=== PATIENT | male | born 1980 | race Caucasian/White ===

== ENCOUNTER 2020-06-01 18:41 | Emergency (ER) | payer OTHER, SELFPAY ==
[2020-06-01 18:46] VITALS: BP 151/87; PULSE 69; RESP 14; TEMP 35.9; O2SAT 99
--- NOTE | 2020-06-01 19:52 | ED.GENADULT ---
HPI - General Adult General Chief complaint: Extremity Problem,Nontraumatic Stated complaint: right arm swelling Time Seen by Provider: 06/01/20 18:50 Source: patient Mode of arrival: ambulatory Limitations: no limitations History of Present Illness HPI narrative: Patient presents with chief complaint of swelling to his right arm that started yesterday. Patient states that he has been off of Xarelto 20 mg a day for the past 3 days. Patient states that he has been taking aspirin as a substitute because of [facility] is unable to fill his medication until Sunday. Patient states that he has had multiple blood clots in his legs and his right arm. Patient states he is seen a sales appointment coordinator and they are unsure why he has blood clotting. Patient denies feeling short of breath, having chest pain or palpitation. Patient states that his was concerned that he was getting another blood clot in his arm so she made him come to the emergency department today. Related Data Home Medications Medication Instructions Recorded Confirmed atorvastatin 07/29/19 bupropion HCl mg PO 07/29/19 levothyroxine [Synthroid] 07/29/19 rivaroxaban [Xarelto] mg 07/29/19 trazodone 07/29/19 Allergies Allergy/AdvReac Type Severity Reaction Status Date / Time Penicillins Allergy Intermediate Hives / Verified 05/07/19 16:12 Red Face levofloxacin Allergy Unknown Hives Verified 06/01/20 18:52 Review of Systems Review of Systems: Narrative: CONSTITUTIONAL: Denies fever, chills, or sweats. EYES: Denies visual changes, redness, or discharge. ENT: Denies rhinorrhea, congestion, sore throat, or otalgia. CARDIOVASCULAR: Denies chest pain, palpitations, or edema. RESPIRATORY: Denies cough or dyspnea. GASTROINTESTINAL: Denies abdominal pain, nausea, vomiting, or diarrhea. GENITOURINARY: Denies dysuria or hematuria. SKIN: Right arm swelling denies rash or itching. MUSCULOSKELETAL: Denies back pain, joint pain, or myalgia. NEUROLOGIC: Denies headache, numbness, dizziness, or weakness. PSYCHIATRIC: Denies anxiety or depression. [facility] Past Medical History Medical History (Updated 06/01/20 @ 19:59 by Ariana Pichardo PA-C) History of DVT (deep vein thrombosis) History of hypothyroidism Social History Social History (Updated 07/29/19 @ 16:50 by Rabia Neal PA-C) Smoking status: Never smoker Exam Narrative: Exam Narrative: GENERAL: Well-appearing, well-nourished, and in no acute distress. HEAD: Normocephalic, atraumatic. EYES: PERRLA and EOMI. CHEST: Clear to auscultation. No respiratory distress. No wheezes rales or rhonchi. No tachypnea or shortness of breath noted. HEART: Regular rate and rhythm. No murmur heard. Normal peripheral pulses. EXTREMITIES: Normal range of motion. Mild swelling and erythema noted to proximal aspect of right arm. Cap refill and pulses intact. SKIN: Warm, dry, no rash. NEURO: No focal deficits. Alert and oriented x3. PSYCH: Normal mood and affect. Course Vital Signs Vital signs: Vital Signs Temperature 96.6 F L 06/01/20 18:46 Pulse Rate 69 06/01/20 18:46 Respiratory Rate 14 06/01/20 18:46 Blood Pressure 151/87 H 06/01/20 18:46 Pulse Oximetry 99 06/01/20 18:46 Temperature 96.6 F L 06/01/20 18:46 Pulse Rate 69 06/01/20 18:46 Respiratory Rate 14 06/01/20 18:46 Blood Pressure 151/87 H 06/01/20 18:46 Pulse Oximetry 99 06/01/20 18:46 Medical Decision Making MDM Narrative Medical decision making narrative: Discussed with the patient the ultrasound is not here presently. He is not tachycardic or short of breath. Patient will receive Lovenox injection and I will refill his Xarelto for the next few days. Patient states if he receives a prescription he can take it to [facility] to have it filled for short time. I have instructed him that he needs to return to the emergency department tomorrow morning at 7 AM for Doppler of his extremity. Vital Signs Vital Signs: Vi
[2020-06-01] MEDS: ENOXAPARIN 120 MG/0.8 ML SYRINGE 105 MG SUB-Q (20:40)
[2020-06-01 20:42] VITALS: BP 136/93; PULSE 86; RESP 20; O2SAT 97
== END 2020-06-01 20:43 | disposition home or self-care (01) ==
PROVIDERS: Emergency Provider Emergency Medicine
DX: M79.89 Other specified soft tissue disorders (principal); Z86.718 Personal history of other venous thrombosis and embolism; E03.9 Hypothyroidism, unspecified; Z79.01 Long term (current) use of anticoagulants
CPT/HCPCS: 96372; 99283; J1650

== ENCOUNTER 2021-09-30 15:37 | Emergency (ER) | payer OTHER, SELFPAY ==
[2021-09-30] VITALS (9 sets, daily range): BP systolic 128–133; BP diastolic 76–86; PULSE 60–88; RESP 12–22; TEMP 36.4; O2SAT 96–99
--- NOTE | ~2021-09-30 | CT_ITS ---
EXAMINATION: CTA chest PE protocol EXAM DATE: 09/30/2021 17:11 INDICATION: Chest pain. Shortness of breath. TECHNIQUE: Spiral CTA of the chest (pulmonary arteries) was performed with 100 cc Omnipaque 350 intr avenous contrast injection. Images were acquired during the pulmonary arterial phase. Coronal maxi mum intensity projection 3D-reconstructions were created by the technologist on dedicated workstation . Axial, coronal and sagittal reformatted images were reviewed. The dose-length product (DLP) for t his examination was 1462.66 mGy-cm. The exposure was tailored according to patient size (auto mA ex posure control), and iterative reconstruction (ASIR) was used as additional dose reduction technique. There is no prior study for comparison. FINDINGS: Pulmonary arteries are well opacified and without intraluminal filling defects. No thora cic aortic dissection. The lungs are clear. There are no pleural or pericardial effusions. Trach eobronchial tree is patent. There is no mediastinal, hilar or axillary lymphadenopathy. There is no pneumothorax. Heart normal in size. No evidence of coronary arterial calcification. Upper abd omen is unremarkable. There is thoracic spondylosis without osteoblastic or osteolytic lesions iden tified. Mild thyromegaly. No focal nodule identified. IMPRESSION: 1. No pulmonary emboli or acute cardiopulmonary findings. 2. Mild thyromegaly. Reviewed, dictated and finalized at location G.
--- NOTE | 2021-09-30 16:03 | PC.NURSE ---
pt had reported syncopal episode in waiting room. No LOC. web content director called for bed placement.
[2021-09-30 16:29] LABS: Basophils Percent Auto 0.6 % (0.2-1.2); Eosinophils Absolute Auto 0.2 K/mm3 (0-0.3); Eosinophils Percent Auto 2.6 % (0-4.4); Hemoglobin 16.8 g/dL (14.0-18.0); Immature Granulocyte Absolute 0.03 K/mm3 (0.00-0.031); Immature Granulocyte Percent A 0.4 % (0-0.5); Lymphocytes Absolute Auto 2.53 K/mm3 (0.9-3.2); Lymphocytes Percent Auto 34.9 % (18.3-44.2); Mean Corpuscular Hemoglobin 30.3 pg (26-34); Mean Corpuscular Volume 86.6 fl (80-100); Mean Platelet Volume 10.2 fl (7.4-10.4); Monocytes Absolute Auto 0.7 K/mm3 (0.1-0.6); Monocytes Percent Auto 9.4 % (2.6-8.5); Neutrophils Absolute Auto 3.8 K/mm3 (1.3-6.7); Neutrophils Percent Auto 52.1 % (45.5-73.1); Platelet Count Result 344 k/mm3 (150-375); Red Blood Count 5.54 M/mm3 (4.6-6.20); Red Cell Distribution Width 12.2 % (11.5-14.5); White Blood Count 7.2 K/mm3 (4.5-10.0)
[2021-09-30 16:39] LABS: Anion Gap 10 mmol/L (8-16); Blood Urea Nitrogen 20 mg/dL (9-20); Calcium 9.1 mg/dL (8.4-10.2); Carbon Dioxide 24 mmol/L (22-30); Chloride 104 mmol/L (98-107); Estimated CRCL calculation 96 ml/min; Estimated Glomerular Filt Rate > 60; Glucose 95 mg/dL (65-110); Potassium 4.1 mmol/L (3.4-5.0); Sodium 138 mmol/L (137-145)
[2021-09-30 16:42] LABS: Prothrombin Time 12.7 Seconds (11.1-14.7)
[2021-09-30 16:43] LABS: Partial Thromboplastin Time 25.1 SECONDS (22.3-36.8)
[2021-09-30] MEDS: MORPHINE SULFATE (*CRX) 4 MG/ML INJ IV PUSH (16:45)
[2021-09-30 16:51] LABS: Troponin I < 0.012 ng/mL (0.000-0.034)
--- NOTE | 2021-09-30 18:21 | ED.GENADULT ---
HPI - General Adult General Chief complaint: Shortness of Breath/Dyspnea <Michael Oglesby MD - Last Filed: 09/30/21 18:25> Stated complaint: sob <Michael Oglesby MD - Last Filed: 09/30/21 18:25> Time Seen by Provider: 09/30/21 16:08 <Michael Oglesby MD - Last Filed: 09/30/21 18:25> History of Present Illness HPI narrative: Patient is a 41-year-old male who presents to the ER with sudden onset right-sided chest pain. Lower right chest wall anteriorly. Sharp. Comes in waves. Worse with deep breath. Makes him mildly dyspneic but he is not out of breath and speaks in full sentences. No trauma. No fevers or chills or sweats. Has history of PE and takes Xarelto. He missed a dose this morning and last night because he has been working a midnight shift. Has chronic lymphedema in his right leg. No new leg swelling or calf cramping. No history of heart disease. Denies any productive cough. Symptoms began within 5 minutes of arrival at the ER. No history of gallstones. Pain is not associated with eating. No pain within the abdomen. <Michael Oglesby MD - Last Filed: 09/30/21 18:25> Related Data Home medications: Home Medications Medication Instructions Recorded Confirmed atorvastatin 07/29/19 06/23/21 bupropion HCl mg PO 07/29/19 06/23/21 levothyroxine [Synthroid] 07/29/19 06/23/21 rivaroxaban [Xarelto] mg 07/29/19 06/23/21 trazodone 07/29/19 06/23/21 <Michael Oglesby MD - Last Filed: 09/30/21 18:25> Allergies/adverse reactions: Allergies Allergy/AdvReac Type Severity Reaction Status Date / Time Penicillins Allergy Intermediate Hives / Verified 07/13/21 07:44 Red Face levofloxacin Allergy Unknown Hives Verified 07/13/21 07:44 <Michael Oglesby MD - Last Filed: 09/30/21 18:25> Review of Systems Review of Systems: All systems reviewed & are unremarkable except as noted in HPI and below <Michael Oglesby MD - Last Filed: 09/30/21 18:25> Constitutional: Constitutional: Denies chills, Denies fever(s) and Denies weakness <Michael Oglesby MD - Last Filed: 09/30/21 18:25> ENT: Denies nasal congestion and Denies sore throat <Michael Oglesby MD - Last Filed: 09/30/21 18:25> Cardiovascular: Cardiovascular: Reports chest pain, Denies rapid heart rate and Denies radiating jaw, neck or arm pain <Michael Oglesby MD - Last Filed: 09/30/21 18:25> Respiratory: Respiratory: Denies cough, Reports dyspnea and Denies wheezing <Michael Oglesby MD - Last Filed: 09/30/21 18:25> Gastrointestinal: Gastrointestinal: Denies abdominal pain, Denies constipation, Denies nausea and Denies vomiting <Michael Oglesby MD - Last Filed: 09/30/21 18:25> Musculoskeletal: Musculoskeletal: Denies arthralgias and Denies joint swelling <Michael Oglesby MD - Last Filed: 09/30/21 18:25> PMF Past Medical History Medical History: Medical History Chronic neck pain History of DVT (deep vein thrombosis) History of hypothyroidism HLD (hyperlipidemia) Hypothyroidism Insomnia PTSD (post-traumatic stress disorder) <Michael Oglesby MD - Last Filed: 09/30/21 18:25> Surgical History Surgical History: Surgical History H/O adenoidectomy S/P UPPP (uvulopalatopharyngoplasty) <Michael Oglesby MD - Last Filed: 09/30/21 18:25> Family History Family History: Family History (System 07/13/21 @ 07:44 by Lorena Liang) Grandparent Family history of thyroid disease Diabetes mellitus Cerebrovascular accident Family history of coronary artery disease Mother Family history of mental disorder Hypertension Family history of smoking <Michael Oglesby MD - Last Filed: 09/30/21 18:25> Social History Social History: Social History (System 07/13/21 @ 07:44 by Lorena Liang) Smoking status: Never smoker Alcohol intake: never
[2021-09-30] MEDS: KETOROLAC 30 MG/ML VIAL (*BKC) IV PUSH (18:35)
--- NOTE | 2021-09-30 19:15 | PC.NURSE ---
Report received from FLOYD Hackett. Pt resting on stretcher. Denies needs at present. Denies pain. 3 hr troponin collected and sent to lab.
[2021-09-30 19:57] LABS: Troponin I < 0.012 ng/mL (0.000-0.034)
== END 2021-09-30 21:04 | disposition home or self-care (01) ==
PROVIDERS: Emergency Medicine; Emergency Provider Emergency Medicine; PCP Family Medicine
DX: R07.89 Other chest pain (principal); R09.1 Pleurisy; E78.5 Hyperlipidemia, unspecified; E01.0 Iodine-deficiency related diffuse (endemic) goiter; F43.10 Post-traumatic stress disorder, unspecified; Z86.718 Personal history of other venous thrombosis and embolism
CPT/HCPCS: 36415; 71275; 80048; 84484; 85025; 85610; 85730; 96374; 96375; 99284; J1885; J2270; Q9967

== ENCOUNTER 2021-11-11 10:04 | Outpatient (CLI) | payer OTHER, SELFPAY ==
--- NOTE | 2021-11-11 13:48 | WPDPFTINT ---
PFT Procedure Performed PFT Procedure Performed Spirometry with Pre/Post Bronchodilator Plethysmography (Lung Vol) Diffusing Cap (DLCO) Flow Vol Loop PFT Interpretation This is a pulmonary function test with pre and post-bronchodilator spirometry, plethysmography and diffusing capacity. The test was performed and results interpreted in accordance with the 2019 and 2005 ATS/ERS Task Force guidelines respectively using the Global Lung Function Initiative-2012 reference equations. Patient demonstrated good effort and cooperation. Reproducibility criteria were met. The quality of the pre bronchodilator spirometry maneuver was Grade A and post bronchodilator spirometry maneuver was Grade A. Findings: Spirometry: The contour the inspiratory and expiratory flow tracing are normal. The pre bronchodilator FVC is 4.43 L, 88% predicted. The pre bronchodilator FEV1 is 3.56 L, 88% predicted. The pre bronchodilator FEV1: FVC ratio was 80%. The post bronchodilator FVC is 4.59 L, representing a 3% increase. The post bronchodilator FEV1 is 3.87 L, representing a 9% increase. The post bronchodilator FEV1: FVC ratio was 84%. Plethysmography: The total lung capacity 6.05 L, 90% predicted. Functional residual capacity is capacity is 2.19 L, 66% predicted. The residual volume is 1.56 L, 87% predicted. Diffusing capacity: The diffusing capacity unadjusted for hemoglobin and carboxyhemoglobin is 42.5, 131% predicted. The diffusing capacity adjusted for alveolar volume is 7.51, 154% predicted. Impression: The spirometry is normal without evidence of an obstructive abnormality. There is no significant improvement after inhaling a single dose of albuterol. The lung volumes are normal. The diffusing capacity is normal. There are no prior studies for comparison
== END 2021-11-11 10:05 | disposition home or self-care (01) ==
LOC: ANHPFT 10:06
PROVIDERS: PCP Family Medicine; Visit Provider Nurse Practitioner Family
DX: R06.00 Dyspnea, unspecified (principal)
CPT/HCPCS: 94060; 94726; 94729

== ENCOUNTER 2022-03-03 10:26 | Emergency (ER) | payer OTHER, SELFPAY ==
--- NOTE | ~2022-03-03 | CT_ITS ---
EXAMINATION: CT abdomen pelvis w con DATE: 03/03/2022 12:28 INDICATION: Left abdominal pain. TECHNIQUE: Computed tomography (CT) of the abdomen and pelvis was performed with 100 mL Omnipaque 350 intravenous contrast. Automated exposure control and iterative reconstruction technique were employe d. The dose-length product was 1161.24 mGy-cm. COMPARISON: Chest CT 09/30/2021 FINDINGS: The visualized portions of the lung bases demonstrate minimal atelectasis. No pleural effus ion. The heart size is normal. No pericardial effusion. There is diffuse hepatic steatosis. The gallb ladder, spleen, pancreas, adrenal glands, and kidneys are normal. There are changes of left inguinal hernia repair. There is fat stranding around an epiploic appendage of descending colon, consistent wi th epiploic appendagitis. There are no dilated loops of bowel. The appendix is normal. There are no p athologically enlarged lymph nodes. There is an umbilical hernia containing fat. There are no patholo gically enlarged lymph nodes. There is no free intraperitoneal fluid. There is mild thoracolumbar spo ndylosis. IMPRESSION: 1. Epiploic appendagitis involving descending colon. Reviewed, dictated and finalized at location A.
[2022-03-03 10:46] VITALS: BP 164/98; PULSE 74; RESP 20; TEMP 36.9; O2SAT 99
--- NOTE | 2022-03-03 11:35 | ED.ABDPAIN ---
HPI - Abdominal Pain General Chief Complaint: Abdominal Pain Stated Complaint: L side bad, recent hernia sx Time Seen by Provider: 03/03/22 11:22 History of Present Illness HPI narrative: Patient is a 41-year-old male who presents ER with left-sided abdominal pain. Worsening over the last couple of days. Patient recently had hernia repair laparoscopically at [place]. No fevers or chills or sweats. Having normal bowel movements. Reports he is belching on occasion. Pain is worse with movement and palpation and so he opted to come in. Related Data Home Medications Medication Instructions Recorded Confirmed atorvastatin 20 mg tablet 07/29/19 10/26/21 bupropion HCl 150 mg 24 hr tablet, mg PO 07/29/19 10/26/21 extended release rivaroxaban 20 mg tablet (Xarelto) mg 07/29/19 10/26/21 trazodone 50 mg tablet 07/29/19 10/26/21 levothyroxine 200 mcg capsule 200 mcg PO DAILY 10/26/21 10/26/21 Allergies Allergy/AdvReac Type Severity Reaction Status Date / Time Penicillins Allergy Intermediate Hives / Verified 03/03/22 11:26 Red Face levofloxacin Allergy Unknown Hives Verified 03/03/22 11:26 Review of Systems Review of Systems: All systems reviewed & are unremarkable except as noted in HPI and below Constitutional: Constitutional: Denies chills and Denies fever(s) Cardiovascular: Cardiovascular: Denies chest pain, Denies rapid heart rate and Denies radiating jaw, neck or arm pain Respiratory: Respiratory: Denies cough and Denies dyspnea Gastrointestinal: Gastrointestinal: Reports abdominal pain, Reports bloating, Denies nausea and Denies vomiting Genitourinary: Genitourinary: Denies dysuria and Denies urinary frequency [facility] Past Medical History Medical History Chronic neck pain History of DVT (deep vein thrombosis) History of hypothyroidism HLD (hyperlipidemia) Hypothyroidism Insomnia PTSD (post-traumatic stress disorder) Surgical History Surgical History H/O adenoidectomy S/P UPPP (uvulopalatopharyngoplasty) Family History Family History Grandparent Family history of thyroid disease Diabetes mellitus Cerebrovascular accident Family history of coronary artery disease Mother Family history of mental disorder Hypertension Family history of smoking Social History Social History Alcohol intake: never Exam Narrative: GENERAL: Well-appearing, well-nourished, and in no acute distress. HEAD: Normocephalic, atraumatic. EYES: PERRL and EOMI. CHEST: Clear to auscultation. No respiratory distress. HEART: Regular rate and rhythm. Normal peripheral pulses. ABDOMEN: Soft, tender to palpation left mid abdomen with guarding, nondistended, normal active bowel sounds. EXTREMITIES: Normal range of motion. No edema. SKIN: Warm, dry, no rash. NEURO: Alert and oriented x3. PSYCH: Normal mood and affect. Course Course Emergency Course: Patient informed of results. Discussed treatment plan. Discharge home. Vital Signs Vital signs: Vital Signs Temperature 98.5 F 03/03/22 10:46 Pulse Rate 74 03/03/22 10:46 Respiratory Rate 20 03/03/22 10:46 Blood Pressure 164/98 H 03/03/22 10:46 Pulse Oximetry 99 03/03/22 10:46 Oxygen Delivery Room Air 03/03/22 10:46 Temperature 98.5 F 03/03/22 10:46 Pulse Rate 74 03/03/22 10:46 Respiratory Rate 20 03/03/22 10:46 Blood Pressure 164/98 H 03/03/22 10:46 Pulse Oximetry 99 03/03/22 10:46 Oxygen Delivery Room Air 03/03/22 10:46 MDM - Abdominal Pain Lab Data Result diagrams: 03/03/22 11:37 03/03/22 11:37 Labs: Lab Results 03/03/22 03/03/22 Range/Units 11:37 11:37 WBC 7.8 (4.5-10.0) K/mm3 RBC 5.23 (4.6-6.20) M/mm3 Hgb 16.1 (14.0-18.0) g/dL Hct 47.
[2022-03-03 11:43] LABS: Basophils Absolute Auto 0.1 K/mm3 (0.0-0.1); Basophils Percent Auto 0.8 % (0.2-1.2); Eosinophils Absolute Auto 0.3 K/mm3 (0-0.3); Eosinophils Percent Auto 3.4 % (0-4.4); Hematocrit 47.1 % (42.0-52.0); Hemoglobin 16.1 g/dL (14.0-18.0); Immature Granulocyte Absolute 0.03 K/mm3 (0.00-0.031); Immature Granulocyte Percent A 0.4 % (0-0.5); Lymphocytes Absolute Auto 1.98 K/mm3 (0.9-3.2); Lymphocytes Percent Auto 25.3 % (18.3-44.2); Mean Corpuscular HGB Conc 34.2 g/dl (32-36); Mean Corpuscular Hemoglobin 30.8 pg (26-34); Mean Corpuscular Volume 90.1 fl (80-100); Mean Platelet Volume 9.9 fl (7.4-10.4); Monocytes Absolute Auto 0.6 K/mm3 (0.1-0.6); Monocytes Percent Auto 7.7 % (2.6-8.5); Neutrophils Absolute Auto 4.9 K/mm3 (1.3-6.7); Neutrophils Percent Auto 62.4 % (45.5-73.1); Platelet Count Result 266 k/mm3 (150-375); Red Blood Count 5.23 M/mm3 (4.6-6.20); Red Cell Distribution Width 12.8 % (11.5-14.5); White Blood Count 7.8 K/mm3 (4.5-10.0)
[2022-03-03 11:56] LABS: Alanine Aminotransferase 52 U/L (6-50); Albumin Level 4.7 g/dL (3.5-5.1); Alkaline Phosphatase 48 U/L (38-126); Anion Gap 8 mmol/L (8-16); Aspartate Amino Transferase 39 U/L (17-59); Bilirubin,Total 1.2 mg/dL (0.2-1.3); Blood Urea Nitrogen 17 mg/dL (9-20); Calcium 9.6 mg/dL (8.4-10.2); Carbon Dioxide 29 mmol/L (22-30); Chloride 100 mmol/L (98-107); Estimated CRCL calculation 94 ml/min; Estimated Glomerular Filt Rate > 60; Glucose 97 mg/dL (65-110); Lipase 97 U/L (23-300); Potassium 4.2 mmol/L (3.4-5.0); Sodium 137 mmol/L (137-145)
[2022-03-03 13:13] VITALS: BP 134/88; PULSE 70; RESP 16
== END 2022-03-03 13:15 | disposition home or self-care (01) ==
PROVIDERS: Emergency Provider Emergency Medicine; PCP Family Medicine
DX: K63.89 Other specified diseases of intestine (principal); E78.5 Hyperlipidemia, unspecified; E03.9 Hypothyroidism, unspecified; F43.10 Post-traumatic stress disorder, unspecified; Z86.718 Personal history of other venous thrombosis and embolism; Z79.01 Long term (current) use of anticoagulants
CPT/HCPCS: 36415; 74177; 80053; 83690; 85025; 99284; Q9967

== ENCOUNTER 2022-09-02 21:56 | Emergency (ER) | payer OTHER, SELFPAY ==
--- NOTE | ~2022-09-02 | XR_ITS ---
XR chest 2V DATE: 09/02/2022 23:34 INDICATION: Chest pain, shortness of breath TECHNIQUE: PA and lateral views COMPARISON: 09/30/2021 CT pulmonary scan 07/29/2021 view chest FINDINGS: Normal heart size. No hilar or mediastinal enlargement. No pulmonary infiltrate or consolid ation, pleural effusion or pulmonary vascular congestion or pneumothorax. Included skeletal structures are unremarkable. IMPRESSION: No active cardiopulmonary disease Reviewed, dictated and finalized at location A. 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
--- NOTE | ~2022-09-02 | CT_ITS ---
EXAMINATION: CT abdomen pelvis w con DATE: 09/02/2022 23:32 INDICATION: Diffuse abdominal cramping, left lower quadrant abdominal pain. Nausea, diarrhea. TECHNIQUE: Computed tomography (CT) of the abdomen and pelvis was performed with 100 CC Omnipaque 350 intravenous contrast. Automated exposure control and iterative reconstruction technique were employe d. Exam dose: 1496.53 mGy-cm total exam DLP. COMPARISON: 03/03/2022 CT abdomen pelvis FINDINGS: The lung bases are clear. Normal heart size. No pericardial or pleural effusion. Diffuse hepatic steatosis. No hepatic space-occupying mass lesion is detected. The gallbladder is pre sent and appears unremarkable. No bile duct or pancreatic duct dilatation. No pancreatic mass lesion or calcification. Normal splenic size. Normal morphology of the adrenal glands. No renal mass lesion or urinary tract calculus or hydrourete ronephrosis. Normal caliber of the abdominal aorta. No intraperitoneal or retroperitoneal or pelvic mass lesion or adenopathy or ascites. Small sliding hiatal hernia. Normal appendix. No bowel obstruction or intraperitoneal free air. IMPRESSION: Normal appendix. No bowel obstruction or free air Hepatic steatosis Reviewed, dictated and finalized at Location A. Reviewed, dictated and finalized at location A. 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
[2022-09-02 22:00] VITALS: BP 147/107; PULSE 100; RESP 18; TEMP 36.7; O2SAT 99
--- NOTE | 2022-09-02 22:04 | ECG_ITS ---
Measurements Intervals [place] Rate: 91 P: 39 WI: 165 QRS: 55 QRSD: 93 T: 34 QT: 337 QTc: 415 Interpretive Statements SINUS RHYTHM NORMAL ELECTROCARDIOGRAM NO PREVIOUS ECG AVAILABLE FOR COMPARISON Electronically Signed On 09-03-2022 8:05:38 HANDLE AND VENT MACHINE OPERATOR by Arnold Menard M.D.
[2022-09-02 22:21] LABS: Basophils Absolute Auto 0.1 K/mm3 (0.0-0.1); Basophils Percent Auto 0.6 % (0.2-1.2); Eosinophils Absolute Auto 0.2 K/mm3 (0-0.3); Eosinophils Percent Auto 2.2 % (0-4.4); Hematocrit 44.8 % (42.0-52.0); Hemoglobin 15.7 g/dL (14.0-18.0); Immature Granulocyte Absolute 0.03 K/mm3 (0.00-0.031); Immature Granulocyte Percent A 0.3 % (0-0.5); Lymphocytes Absolute Auto 1.47 K/mm3 (0.9-3.2); Lymphocytes Percent Auto 15.5 % (18.3-44.2); Mean Corpuscular Hemoglobin 31.3 pg (26-34); Mean Corpuscular Volume 89.2 fl (80-100); Mean Platelet Volume 10.3 fl (7.4-10.4); Monocytes Absolute Auto 0.9 K/mm3 (0.1-0.6); Monocytes Percent Auto 8.9 % (2.6-8.5); Neutrophils Absolute Auto 6.9 K/mm3 (1.3-6.7); Neutrophils Percent Auto 72.5 % (45.5-73.1); Platelet Count Result 247 k/mm3 (150-375); Red Blood Count 5.02 M/mm3 (4.6-6.20); Red Cell Distribution Width 12.6 % (11.5-14.5); White Blood Count 9.5 K/mm3 (4.5-10.0)
--- NOTE | 2022-09-02 22:23 | ED.SOB ---
HPI - SOB/Dyspnea General Chief Complaint: Shortness of Breath/Dyspnea Stated Complaint: SOB, CP Time Seen by Provider: 09/02/22 22:09 History of Present Illness HPI Narrative: Patient is a 42-year-old male here for evaluation of multiple medical complaints. He states that he has was hospitalized at [facility] for a few days last week after he was diagnosed with a PE. He has been placed on Coumadin and is compliant with this medicine. He was feeling improved but yesterday he developed epigastric abdominal pain, LLQ pain, chest pain and increased shortness of breath. Also complaining of R sided headache. No head trauma, loss of consciousness, nausea, vomiting, constipation or diarrhea, fevers or chills. He has not taken any medicine for his pain. 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 Related Data Home Medications Medication Instructions Recorded Confirmed atorvastatin 20 mg tablet 07/29/19 10/26/21 bupropion HCl 150 mg 24 hr tablet, mg PO 07/29/19 10/26/21 extended release rivaroxaban 20 mg tablet (Xarelto) mg 07/29/19 10/26/21 trazodone 50 mg tablet 07/29/19 10/26/21 levothyroxine 200 mcg capsule 200 mcg PO DAILY 10/26/21 10/26/21 Allergies Allergy/AdvReac Type Severity Reaction Status Date / Time Penicillins Allergy Intermediate Hives / Verified 09/02/22 22:03 Red Face levofloxacin Allergy Unknown Hives Verified 09/02/22 22:03 Review of Systems Review of Systems: Gen.: Denies fevers or chills Eyes: Denies eye pain or visual change ENT: Denies congestion Respiratory: Reports shortness of breath CV: Reports chest pain GI: Reports abdominal pain. denies burning, urgency, frequency or hematuria Musculoskeletal: Denies back pain or muscle pain Neuro: Reports headache. Denies numbness, tingling, weakness or focal weakness Skin: Denies rash Except as documented, all other systems reviewed and negative [facility] Past Medical History Medical History Chronic neck pain History of DVT (deep vein thrombosis) History of hypothyroidism HLD (hyperlipidemia) Hypothyroidism Insomnia PTSD (post-traumatic stress disorder) Surgical History Surgical History H/O adenoidectomy S/P UPPP (uvulopalatopharyngoplasty) Family History Family History Grandparent Family history of thyroid disease Diabetes mellitus Cerebrovascular accident Family history of coronary artery disease Mother Family history of mental disorder Hypertension Family history of smoking Social History Social History Alcohol intake: never Exam Narrative: APPEARANCE: Well appearing, no pain in distress, well-nourished. Head: Normocephalic and atraumatic. EYES: PERRLA/EOMI, conjunctivae clear NOSE: No nasal drainage EARS: External ear normal in appearance THROAT: Oropharynx is clear. Mucous membranes are moist. NECK: Supple. No adenopathy, no masses. RESPIRATORY: Airway patent, respirations nonlabored. Clear to auscultation bilaterally, no rales, rhonchi, wheezing. CARDIOVASCULAR: Regular rate and rhythm without murmurs, rubs, or gallops. ABDOMINAL: Lower quadrant abdominal tenderness. Normoactive bowel sounds. Soft, nondistended. No rebound tenderness or guarding. MUSCULOSKELETAL: Compression stocking in place to right lower extremity no calf tenderness bilaterally. Extremities are warm and well-perfused. Moves all extremities well. No edema. NEURO: Normal speech. No focal neurologic deficits. SKIN: Skin is warm and dry. No rashes. PSYCHIATRIC: Normal affect/mood. Course Vital Signs Vital signs: Vital Signs Temperature 98.1 F 09/02/22 22:00 Pulse Rate 100 09/02/22 22:00 Respiratory Rate 18 09/02/22 22:00 Blood Pressure 147/107 H 09/02/22
[2022-09-02 22:30] LABS: Alanine Aminotransferase 90 U/L (6-50); Albumin Level 4.8 g/dL (3.5-5.1); Alkaline Phosphatase 48 U/L (38-126); Anion Gap 5 mmol/L (8-16); Aspartate Amino Transferase 48 U/L (17-59); Bilirubin,Total 1.1 mg/dL (0.2-1.3); Blood Urea Nitrogen 14 mg/dL (9-20); Calcium 9.2 mg/dL (8.4-10.2); Carbon Dioxide 30 mmol/L (22-30); Chloride 101 mmol/L (98-107); Estimated CRCL calculation 96 ml/min; Estimated Glomerular Filt Rate > 60; Glucose 88 mg/dL (65-110); Lipase 184 U/L (23-300); Potassium 4.3 mmol/L (3.4-5.0); Sodium 136 mmol/L (137-145)
[2022-09-02 22:31] LABS: INR 2.2; Prothrombin Time 23.5 Seconds (11.1-14.7)
[2022-09-02 22:32] LABS: Partial Thromboplastin Time 35.7 SECONDS (22.3-36.8)
[2022-09-02 22:40] VITALS: PULSE 93
[2022-09-02 22:42] LABS: Troponin I < 0.012 ng/mL (0.000-0.034)
[2022-09-02 23:08] VITALS: BP 131/90; PULSE 91; RESP 19; O2SAT 94
[2022-09-02 23:15] LABS: Influenza A QL RT-PCR Negative (Negative); Influenza B QL RT-PCR Negative (Negative); SARS-CoV-2 RNA PCR Negative
[2022-09-02 23:25] VITALS: O2SAT 98
--- NOTE | 2022-09-02 23:30 | PC.NURSE ---
Pt to imaging at this time.
[2022-09-03] MEDS: DICYCLOMINE HCL 10 MG CAPSULE 20 MG PO (00:25)
[2022-09-03 00:28] VITALS: BP 123/79; PULSE 77; RESP 18; TEMP 36.6; O2SAT 98
== END 2022-09-03 00:29 | disposition home or self-care (01) ==
PROVIDERS: Emergency Medicine; Emergency Provider Physician Assistant
DX: K52.9 Noninfective gastroenteritis and colitis, unspecified (principal); Z20.822 Contact with and (suspected) exposure to COVID-19; E03.9 Hypothyroidism, unspecified; E78.5 Hyperlipidemia, unspecified; F43.10 Post-traumatic stress disorder, unspecified; Z86.718 Personal history of other venous thrombosis and embolism; Z79.01 Long term (current) use of anticoagulants
CPT/HCPCS: 36415; 71046; 74177; 80053; 83690; 84484; 85025; 85610; 85730; 87636; 93005; 96374; 99284; A9270; J0131; Q9967

== ENCOUNTER 2022-12-25 12:41 | Emergency (ER) | payer OTHER, SELFPAY ==
--- NOTE | ~2022-12-25 | CT_ITS ---
EXAMINATION: CT pelvis w con DATE: 12/25/2022 14:13 INDICATION: Possible abscess of the perineum TECHNIQUE: Computed tomography (CT) of the pelvis was performed with 100 cc Omnipaque 350 intravenous contrast. The dose-length product was 1015.57 mGy-cm. COMPARISON: None FINDINGS: There is a small abscess of the perineum anterior to the gluteal folds measuring 2 x 1.7 x 1.3 cm, axial images 114-118. Nonobstructive bowel pattern. Visualized aspects of the kidneys are unr emarkable. No significant vascular abnormality. There is mild left inguinal lymphadenopathy, likely r eactive. No free air or free fluid. IMPRESSION: 1. Small abscess of the perineum measuring 2 x 1.7 x 1.3 cm, best seen on axial images 114-118. Reviewed, dictated and finalized at location []
[2022-12-25 12:44] VITALS: BP 138/100; PULSE 94; RESP 16; TEMP 37; O2SAT 98
--- NOTE | 2022-12-25 13:25 | ED.GENADULT ---
HPI - General Adult General Chief complaint: Skin/Abscess/Foreign Body Stated complaint: abcess behind scrotum Time Seen by Provider: 12/25/22 12:56 History of Present Illness HPI narrative: 42-year-old male presented the ED for evaluation of pain behind his scrotum that has been worsening over the course of the last week. Patient reports he is not but diabetic, denies any fevers or injury, denies any high risk sexual behavior. Denies any pain with urination. Patient has no prior history of MRSA. Related Data Home Medications Medication Instructions Recorded Confirmed atorvastatin 20 mg tablet 07/29/19 10/26/21 bupropion HCl 150 mg 24 hr tablet, mg PO 07/29/19 10/26/21 extended release rivaroxaban 20 mg tablet (Xarelto) mg 07/29/19 10/26/21 trazodone 50 mg tablet 07/29/19 10/26/21 levothyroxine 200 mcg capsule 200 mcg PO DAILY 10/26/21 10/26/21 Allergies Allergy/AdvReac Type Severity Reaction Status Date / Time Penicillins Allergy Intermediate Hives / Verified 12/25/22 12:47 Red Face levofloxacin Allergy Unknown Hives Verified 12/25/22 12:47 Review of Systems Review of Systems: All systems reviewed & are unremarkable except as noted in HPI and below PMFSH Past Medical History Medical History Chronic neck pain History of DVT (deep vein thrombosis) History of hypothyroidism HLD (hyperlipidemia) Hypothyroidism Insomnia PTSD (post-traumatic stress disorder) Surgical History Surgical History H/O adenoidectomy S/P UPPP (uvulopalatopharyngoplasty) Family History Family History Grandparent Family history of thyroid disease Diabetes mellitus Cerebrovascular accident Family history of coronary artery disease Mother Family history of mental disorder Hypertension Family history of smoking Social History Social History Alcohol intake: never Exam Narrative: APPEARANCE: Well appearing, no pain, no distress, well-nourished. HEAD: normocephalic, atraumatic. EYES: PERRLA/EOMI, conjunctivae clear. NOSE: Normal no drainage NECK: Supple. No adenopathy, no masses. RESPIRATORY: Airway patent, respirations nonlabored. Clear to auscultation bilaterally, no rales, rhonchi, wheezing. CARDIOVASCULAR: Regular rate and rhythm without murmurs rubs or gallops. ABDOMINAL: Soft, nontender, nondistended, normal bowel sounds Scrotal exam: Tenderness of the perineum with no fluctuance or significant erythema. No tenderness anteriorly during the rectal exam. No palpated abscess on rectal exam. MUSCULOSKELETAL: Moves all extremities. Strength/ROM intact, No edema, No calf tenderness. NEURO: Alert. Cranial nerves II through XII intact. Grossly intact SKIN: Warm, dry. Normal Color Course Course Emergency Course: 42-year-old male presented the ED for evaluation of pain of the perineum. CT scan did show evidence of an abscess of the perineum. Patient was afebrile with no leukocytosis. Bedside ultrasound did show the abscess was amenable to drainage. Patient was anesthetized with lidocaine with epi and abscess was successfully drained and packed. Patient was started on antibiotics. Patient was encouraged of close follow-up. All question concerns were addressed and patient was stable at time of discharge Vital Signs Vital signs: Vital Signs Temperature 98.6 F 12/25/22 12:44 Pulse Rate 94 12/25/22 12:44 Respiratory Rate 16 12/25/22 12:44 Blood Pressure 138/100 H 12/25/22 12:44 Pulse Oximetry 98 12/25/22 12:44 Temperature 98.6 F 12/25/22 12:44 Pulse Rate 90 12/25/22 15:30 Respiratory Rate 16 12/25/22 15:30 Blood Pressure 160/89 H 12/25/22 15:30 Pulse Oximetry 100 12/25/22 15:30 Procedures Abscess I/D abdomen: Local Anesthet
[2022-12-25 13:33] LABS: Basophils Percent Auto 0.4 % (0.2-1.2); Eosinophils Absolute Auto 0.3 K/mm3 (0-0.3); Eosinophils Percent Auto 2.5 % (0-4.4); Hematocrit 44.5 % (42.0-52.0); Hemoglobin 15.2 g/dL (14.0-18.0); Immature Granulocyte Absolute 0.03 K/mm3 (0.00-0.031); Immature Granulocyte Percent A 0.3 % (0-0.5); Lymphocytes Absolute Auto 1.99 K/mm3 (0.9-3.2); Lymphocytes Percent Auto 20.1 % (18.3-44.2); Mean Corpuscular HGB Conc 34.2 g/dl (32-36); Mean Corpuscular Volume 87.8 fl (80-100); Mean Platelet Volume 10.1 fl (7.4-10.4); Monocytes Absolute Auto 0.9 K/mm3 (0.1-0.6); Monocytes Percent Auto 9.4 % (2.6-8.5); Neutrophils Absolute Auto 6.7 K/mm3 (1.3-6.7); Neutrophils Percent Auto 67.3 % (45.5-73.1); Platelet Count Result 254 k/mm3 (150-375); Red Blood Count 5.07 M/mm3 (4.6-6.20); Red Cell Distribution Width 12.3 % (11.5-14.5); White Blood Count 9.9 K/mm3 (4.5-10.0)
[2022-12-25 13:39] LABS: Appearance Urine Clear (Clear); Bilirubin Urine Negative (Negative); Blood Urine Negative (Negative); Color Urine Yellow (Yellow); Glucose Urine UA Negative (Negative); Ketones Urine Negative (Negative); Leukocyte Esterase Ur Negative LEU/UL (Negative); Nitrate Urine Negative (Negative); Protein Urine Negative (Negative); Specific Grav Ur 1.024 (1.001-1.035); pH Urine 5.5 (5.0-9.0)
[2022-12-25 13:41] LABS: Add Urine Microscopic? NO
[2022-12-25 13:45] LABS: Lactic Acid Reflex 0.8 mmol/L (0.7-2.0)
[2022-12-25 13:46] LABS: Alanine Aminotransferase 40 U/L (6-50); Albumin Level 4.1 g/dL (3.5-5.1); Alkaline Phosphatase 38 U/L (38-126); Anion Gap 5 mmol/L (8-16); Aspartate Amino Transferase 37 U/L (17-59); Bilirubin,Total 1.1 mg/dL (0.2-1.3); Blood Urea Nitrogen 18 mg/dL (9-20); Calcium 8.7 mg/dL (8.4-10.2); Carbon Dioxide 30 mmol/L (22-30); Chloride 102 mmol/L (98-107); Estimated CRCL calculation 96 ml/min; Estimated Glomerular Filt Rate > 60; Glucose 93 mg/dL (65-110); Potassium 4.1 mmol/L (3.4-5.0); Sodium 137 mmol/L (137-145)
[2022-12-25 14:12] LABS: Estimated CRCL calculation 82 ml/min; Estimated Glomerular Filt Rate > 60
[2022-12-25] MEDS: HYDROmorphone HCL INJ (*CRX) 1 MG/ML SYR IV PUSH (14:38)
--- NOTE | 2022-12-25 15:00 | PC.NURSE ---
Dr. Sam at bedside to I&D perineum abscess. pt tolerating well
[2022-12-25] MEDS: CLINDAMYCIN HCL 150 MG CAP 300 MG PO (15:20)
[2022-12-25] MEDS: LIDO 1%/EPINEPHRINE 1:100,000 20 ML VIAL 10 ML INFILTRATE (15:21)
[2022-12-25 15:30] VITALS: BP 160/89; PULSE 90; RESP 16; O2SAT 100
== END 2022-12-25 15:30 | disposition home or self-care (01) ==
PROVIDERS: Emergency Provider Emergency Medicine
DX: L02.215 Cutaneous abscess of perineum (principal); E03.9 Hypothyroidism, unspecified; E78.5 Hyperlipidemia, unspecified; F43.10 Post-traumatic stress disorder, unspecified; Z86.718 Personal history of other venous thrombosis and embolism; Z79.01 Long term (current) use of anticoagulants
CPT/HCPCS: 10061; 36415; 46040; 72193; 80053; 81003; 83605; 85025; 96374; 99283; 99284; A9270; J1170; Q9967

== ENCOUNTER 2023-10-25 20:57 | Emergency (ER) | payer OTHER, SELFPAY ==
--- NOTE | ~2023-10-25 | XR_ITS ---
EXAMINATION: XR ankle LT 2V DATE: 10/25/2023 22:18 INDICATION: Left ankle injury. TECHNIQUE: 2 views of left ankle were obtained. COMPARISON: None. FINDINGS: Bone alignment is normal. No fracture. There is heterotopic ossification distal to lateral malleolus. Joint spaces are normal. There are enthesophytes at the posterior and plantar aspects of c alcaneal tuberosity. Ankle soft tissue swelling is noted. IMPRESSION: 1. No acute fracture. Reviewed, dictated and finalized at location E. IMPRESSION: 1. No acute fracture.
[2023-10-25 21:05] VITALS: BP 149/88; PULSE 83; RESP 18; TEMP 36.3; O2SAT 100
--- NOTE | 2023-10-25 22:21 | PC.NURSE ---
pt to ed staff stating, no one is taking this seriously, I have a history of pulmonary embolism, I am on blood thinners, you need to figure out what is going on . this rn educated patient on the process of intake and triage. pt verbalized If I do not get back to a room quickly, I will have to leave and go somewhere else . this rn explained to patient the benefits of seeing provider. pt returned to being seated.
--- NOTE | 2023-10-25 22:33 | ED.LOWEXIN ---
HPI - Extremity Injury (Lower) General Chief Complaint: Extremity Injury, Lower Stated Complaint: L ankle injury Time Seen by Provider: 10/25/23 22:30 History of Present Illness HPI Narrative: patient got hit by a baseball to the front of the distal left leg anteriorly 2 hours ago. Patient complaining of pain. History of deep vein thrombosis on Coumadin. He denies other injuries. Patient drove himself to the emergency room. Related Data Home Medications Medication Instructions Recorded Confirmed atorvastatin 20 mg tablet 07/29/19 12/27/22 bupropion HCl 150 mg 24 hr tablet, mg PO 07/29/19 12/27/22 extended release trazodone 50 mg tablet 07/29/19 12/27/22 levothyroxine 200 mcg capsule 200 mcg PO DAILY 10/26/21 12/27/22 warfarin 1 mg tablet 1 mg PO DAILY 12/27/22 12/27/22 Allergies Allergy/AdvReac Type Severity Reaction Status Date / Time Penicillins Allergy Intermediate Hives / Verified 10/25/23 20:58 Red Face levofloxacin Allergy Unknown Hives Verified 10/25/23 20:58 Review of Systems Review of Systems: All systems reviewed & are unremarkable except as noted in HPI and below PMFSH Past Medical History Medical History Chronic neck pain History of DVT (deep vein thrombosis) History of hypothyroidism HLD (hyperlipidemia) Hypothyroidism Insomnia PTSD (post-traumatic stress disorder) Surgical History Surgical History H/O adenoidectomy H/O hemorrhoidectomy H/O inguinal hernia repair H/O wrist surgery History of surgery on lower extremity History of surgery on upper extremity right bicep repair right rotator cuff repair S/P UPPP (uvulopalatopharyngoplasty) Family History Family History Grandparent Family history of thyroid disease Diabetes mellitus Cerebrovascular accident Family history of coronary artery disease Mother Family history of mental disorder Hypertension Family history of smoking Social History Social History Smoking status: Never smoker Alcohol intake: never Living arrangements: with family Exam Narrative: General appearance: Well-developed, well-nourished Skin: Normal color Head: Normocephalic, nontraumatic Eyes: Clear conjunctiva ENT: Oropharynx normal, ears normal, nose normal Neck: Supple, nontender Chest and respiratory: Airway patent, no respiratory distress, no accessory muscle use Heart: Regular rate/rhythm Abdomen: Soft, nontender, no organomegaly, quiet bowel sounds Vascular: Normal peripheral pulses, normal capillary refill. Musculoskeletal: Left lower leg showed 3 cm bruises distally, anteriorly just above the level of the ankle. No limited range of motion, no swelling, no deformity Neurologic: Alert and oriented ?3, DIRECT[employer] is normal as tested, no gross motor deficit Course Vital Signs Vital signs: Vital Signs Temperature 36.3 C L 10/25/23 21:05 Pulse Rate 83 10/25/23 21:05 Respiratory Rate 18 10/25/23 21:05 Blood Pressure 149/88 H 10/25/23 21:05 Pulse Oximetry 100 10/25/23 21:05 Oxygen Delivery Room Air 10/25/23 21:05 Temperature 36.3 C L 10/25/23 21:05 Pulse Rate 83 10/25/23 21:05 Respiratory Rate 18 10/25/23 21:05 Blood Pressure 149/88 H 10/25/23 21:05 Pulse Oximetry 100 10/25/23 21:05 Oxygen Delivery Room Air 10/25/23 21:05 MDM - Extremity Injury (Lower) MDM Narrative Medical decision making narrative: Impressions Ankle X-Ray 10/25/23 22:22 IMPRESSION: 1. No acute fracture. D
[2023-10-25] MEDS: HYDROcodone/acetaminophen (*CRX) 5-325 MG TABLET 1 TAB PO (23:10)
== END 2023-10-25 23:12 | disposition home or self-care (01) ==
LOC: ANHED 22:44
PROVIDERS: Emergency Provider Emergency Medicine
DX: S80.12XA Contusion of left lower leg, initial encounter (principal); E03.9 Hypothyroidism, unspecified; E78.5 Hyperlipidemia, unspecified; F43.10 Post-traumatic stress disorder, unspecified; Z86.718 Personal history of other venous thrombosis and embolism; Z79.01 Long term (current) use of anticoagulants; W21.03XA Struck by baseball, initial encounter
CPT/HCPCS: 73600; 99283; A9270

== ENCOUNTER 2025-05-09 18:36 | Emergency (ER) | payer OTHER, SELFPAY ==
--- NOTE | ~2025-05-09 | XR_ITS ---
EXAMINATION: XR knee LT 3V, 05/09/2025 19:52 CDT HISTORY: knee pain COMPARISON: No comparisons available. Findings: No acute fracture or malalignment. No significant degenerative changes. Soft tissues unremarkable. Impression: No acute fracture or malalignment. Reviewed, dictated and finalized at location P. Impression: No acute fracture or malalignment.
[2025-05-09 18:43] VITALS: BP 155/99; PULSE 88; RESP 19; TEMP 36.9; O2SAT 97
--- NOTE | 2025-05-09 20:23 | ED_ITS ---
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 Patient presents to the emergency department today with left knee pain after feeling a pop while he was going down the knee along it. [place] a pop in his left knee and then had a burning sensation to his left outer aspect of the knee near the patella. Did not feel the patella move her shift. No traumatic injuries and he was just kneeling down. No falls. Is able to range the extremity without difficulty but does have reproducible pain over the left lateral aspect of the knee when he bends past 90?. Able to bear weight but has worsening pain when he dorsiflexes the ankle. No overlying skin discoloration or changes. No sensation loss or weakness. Was otherwise in his normal state of health. No changes to his medications recently. Related Data Home Medications ?Medication ?Instructions ?Recorded ?Confirmed ?Last Taken ?Type atorvastatin 20 mg tablet 07/29/19 12/27/22 Unknown H istory bupropion HCl 150 mg 24 hr tablet, mg PO 07/29/1912/08 Unknown History extended release trazodone 50 mg tablet 07/29/19 12/27/22 Unknown H istory levothyroxine 200 mcg capsule 200 mcg PO DAILY 2 12/27/22 Unknown History warfarin 1 mg tablet 1 mg PO DAILY 12/27/2212/27 Unknown History Allergies Allergy/AdvReac Type Severity Reaction Status Date / Time Penicillins Allergy Intermediate Hives / Verified 05/09/25 19:32 Red Face levofloxacin Allergy Unknown Hives Verified 05/09/25 19:32 Review of Systems Review of Systems: As reviewed above in HPI [facility] Past Medical History Medical History PTSD (post-traumatic stress disorder) Chronic neck pain Hypothyroidism Insomnia HLD (hyperlipidemia) History of DVT (deep vein thrombosis) History of hypothyroidism Surgical History Surgical History H/O inguinal hernia repair H/O wrist surgery H/O hemorrhoidectomy History of surgery on upper extremity right bicep repair right rotator cuff repair History of surgery on lower extremity H/O adenoidectomy S/P UPPP (uvulopalatopharyngoplasty) Family History Family History Grandparent Family history of thyroid disease Diabetes mellitus Cerebrovascular accident Family history of coronary artery disease Mother Family history of mental disorder Hypertension Family history of smoking Social History Social History Smoking status: Never smoker Alcohol intake: never Living arrangements: with family Exam Narrative: GENERAL: [Well-appearing, well-nourished, and in no acute distress.] HEAD: [Normocephalic, atraumatic.] EYES: [PERRLA and EOMI.] ENT: Nares clear, no rhinorrhea or epistaxis. Mucous membranes moist. NECK: Supple. CHEST: [Clear to auscultation. No respiratory distress.] HEART: [Regular rate and rhythm]. No murmur heard. [Normal peripheral pulses.] ABDOMEN: [Soft, nondistended], [nontender], [No rigidity or guarding] EXTREMITIES: No extremity edema. Normal range of motion but does have elicit pain over the left lateral joint line of the knee with flexion past 90?. Plantar flexion and dorsiflexion 5/5. Dorsiflexion elicits some pain in the same area. Describes the pain as burning but no overlying skin discoloration or redness/hematoma formation. No popliteal masses or calf asymmetry or palpable cords. 2+ dorsalis pedis pulse and warm extremity. No medial joint line tenderness or laxity with valgus or varus stress testing. Negative Chavez's testing but positive Clarence grind test. SKIN: Warm, dry, no rash. NEURO: [No focal deficits]. Alert and oriented [x3.] PSYCH: [Normal mood and affect.] Course Vital Signs Vital signs: Vital Signs Temperature 36.9 C 05/09/25 18:43 Pulse Rate 88 05/09/25 18:43 Respiratory Rate 19 05/09/25 18:43 Blood Pressure 155/99 H 05/09/25 18:43 Pulse Oximetry 97 05/09/25 18:43 Oxygen Delivery Room Air 05/09/25 18:43 Temperature 36.9 C 05/09/25 18:43 Pulse Rate 88 05/09/25 18:43 Respiratory Rate 19 05/09/25 18:43 Blood Pressure 155/99 H 05/09/25 18:43 Pulse Oximetry 97 05/09/25 18:43 Oxygen Delivery Room Air 05/09/25 18:43 MDM - Extremity Injury (Lower) MDM Narrative Medical decision making narrative: 44-year-old male with 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 Patient presents to the emergency department today with left knee pain after feeling a pop while he was going down the knee along it. [place] a pop in his left knee and then had a burning sensation to his left outer aspect of the knee near the patella. Did not feel the patella move her shift. No traumatic injuries and he was just kneeling down. No falls. Is able to range the extremity without difficulty but does have reproducible pain over the left lateral aspect of the knee when he bends past 90?. Able to bear weight but has worsening pain when he dorsiflexes the ankle. No overlying skin discoloration or changes. No sensation loss or weakness. Was otherwise in his normal state of health. No changes to his medications recently. No extremity edema. Normal range of motion but does have elicit pain over the left lateral joint line of the knee with flexion past 90?. Plantar flexion and dorsiflexion 5/5. Dorsiflexion elicits some pain in the same area. Describes the pain as burning but no overlying skin discoloration or redness/hematoma formation. No popliteal masses or calf asymmetry or palpable cords. 2+ dorsalis pedis pulse and warm extremity. No medial joint line tenderness or laxity with valgus or varus stress testing. Negative Chavez's testing but positive Clarence grind test. Patient is hemodynamically stable with unremarkable vital signs. Suspect meniscal injury verses ligamentous injury in the lateral collateral ligament based on the description and findings. Less likely patellar dislocation or occult fracture. No traumatic inciting event. X-rays were obtained and negative for acute traumatic injury or malalignment. Patient placed in knee immobilizer given tramadol for comfort. Lidocaine patch applied and he was given referral for orthopedics for further outpatient testing if warranted and not improving with conservative therapy. Patient was told that he had previously injured menisci from repaired of wear and tear while he was in the [employer]. No history of surgeries or interventions to his knees. Medical Records Attestation: I reviewed the patient's medical records. Imaging Data Attestation: I personally reviewed and interpreted this imaging study as follows: My impression: Impressions Knee X-Ray 05/09/25 19:59 Impression: No acute fracture or malalignment. Discharge Plan Discharge Clinical Impression: Acute knee pain Patient Disposition: Hospice - Home Condition: Stable Instructions: Knee Sprain (ED), Knee Pain (ED), Knee Immobilizer (ED) Additional Instructions: X-rays do not show any broken bones or fractures/malalignment. Suspect potential meniscus verses lateral collateral ligament injury. Wear the knee immobilizer for comfort. We have sent you some pain control medications including tramadol but in addition I would recommend taking ibuprofen every 8 hours in addition to a lidocaine patch to the area that is hurting you. Do not have to wear the immobilizer 29/01 but use it for comfort and ambulation, you can also substitute with a more comfortable knee brace if you have one. Call the provided configuration specialist for a outpatient evaluation next week. Apply ice to the area up to 20 minutes at a time. After 2 days you can start adding in heat to the area. Patient Language: Vietnamese Prescriptions: New tramadol 50 mg tablet 50 mg PO Q6H PRN (Reason: pain) Qty: 14 0RF acetaminophen [Tylenol Extra Strength] 500 mg tablet 1,000 mg PO TID PRN (Reason: pain) Qty: 30 0RF lidocaine 5 % adhesive patch,medicated 1 patch topical DAILY Qty: 15 0RF Rx Instructions: leave on most painful area for up to 12 hrs No Action warfarin 1 mg tablet 1 mg PO DAILY levothyroxine 200 mcg capsule 200 mcg PO DAILY atorvastatin 20 mg tablet trazodone 50 mg tablet bupropion HCl 150 mg tablet extended release 24 hr PO clindamycin HCl 300 mg capsule 300 mg PO Q6H 10 Days Qty: 40 0RF Follow-up/Referrals: Fadi Lainez MD [Physician, Orthopedics] - 2 Days Referral Note: call Sunday for follow up appointment. Vince Olivares DO [Primary Care Provider, Internal Medicine] Time of Disposition: 20:31
--- OUTSIDE RECORDS SUMMARY | 2025-05-09 20:26 | XMS_ITS | Encounter Summary ---
Author Organization [facility] Address [address] [place] [id number] Care Team Providers Care Inlayer Silver Name Role Phone Gagan NASSAR MD, Zhen Bird Primary Care Provider Encounter Details Date Type Department Care Team (Late st Contact Info) Description 12/24/2022 [email or web address] Message Enc [facility] Family Medicine - [place] [phone] Zhen Farah II, MD [address] [place] [address] Large cyst Social History Tobacco Use Types Packs/Day Years Used Date Smoking Tobacco: Never Smokeless Tobacco: Never Alcohol Use Standard Drinks/Week Comments Yes 0 (1 standard drink = 0.6 oz pur e alcohol) rare Humiliation, Afraid, Rape, and Kick questionnair e Answer Date Recorded Within the last year, have y ou been afraid of your partner or ex-partner? No 08/22/2022 Within the last year, have y ou been humiliated or emotionally abused in other ways by your partner or ex-partner? No Within the last year, have y ou been kicked, hit, slapped, or otherwise physically hurt by your partner or ex-partner? No 08/22/2022 Within the last year, have y ou been raped or forced to have any kind of sexual activity by your partner or ex-partner? No 08/22/2022 Overall Financial Resource Strain (CARDIA) Answe r Date Recorded How hard is it for you to pa y for the very basics like food, housing, medical care, and heating? Not hard at all 08/22/2022 PHQ-2 Answer Date Recorded Patient Health Questionnaire-2 Score 0 08/03/2022 Hunger Vital Sign Answer Date Recorded Within the past 12 months, y ou worried that your food would run out before you got the money to buy more. Never true 08/22/19 23 Within the past 12 months, t he food you bought just didn't last and you didn't have money to get more. Never true 08/22/2022 PRAPARE - Transportation Answer Date Re corded In the past 12 months, has l ack of transportation kept you from medical appointments or from getting medications? No 08/09 In the past 12 months, has l ack of transportation kept you from meetings, work, or from getting things needed for daily living? No 08/22/2022 Housing Stability Vital Sign Answer Sanjay e Recorded In the last 12 months, was t here a time when you were not able to pay the mortgage or rent on time? No 08/22/2022 In the last 12 months, how many places have you lived? 1 08/22/2022 In the last 12 months, was t here a time when you did not have a steady place to sleep or slept in a custodial (including now)? No 08/22/2022 Sex and Gender Information Value Date Recorded Sex Assigned at Male 08/21/2024 8:36 AM EMERGENCY ROOM RN Legal Sex Male 9:10 AM CDT Gender Identity Male 08/25/2024 7:05 AM EMERGENCY ROOM RN Sexual Orientation Not on file COVID-19 Exposure Response Date Recorded In the last 10 days, have yo u been in contact with someone who was confirmed or suspected to have Coronavirus/COVID-19? No / Unsure 11/24/2022 10:41 AM CDT documented as of this encounter Functional Status * RETIRED Are you deaf or do you have serious difficulty hearing Answer Date of Assessment Author Status No 08/22/2022 4:56 PM EMERGENCY ROOM RN Activ e * RETIRED Are you blind or do you have serious difficulty seeing, even when wearing glasses? Answer Date of Assessment Author Status No 08/22/2022 4:56 PM EMERGENCY ROOM RN Activ e * Do you have serious difficulty walking or climbing stairs? Answer Date of Assessment Author Status No 08/22/2022 4:56 PM EMERGENCY ROOM RN Mona Harris R N Active * Do you have difficulty dressing or bathing? Answer Date of Assessment Author Status No 08/22/2022 4:56 PM EMERGENCY ROOM RN Mona Harris R N Active * Because of a physical, mental, or emotional condition, do you have difficulty doing errands alone such as visiting a doctor's office or shopping? Answer Date of Assessment Author Status No 08/22/2022 4:56 PM EMERGENCY ROOM RN Mona Harris R N Active documented as of this encounter Mental Status * Because of a physical, mental, or emotional condition, do you have serious difficulty concentrating, remembering, or making decisions? Answer Entry Date Author Status No 08/22/2022 4:56 PM EMERGENCY ROOM RN Mona Harris R N Active documented in this encounter Progress Notes * Tennille Lance MA - 12/26/2022 3:03 PM CDT Pt is scheduled to come in office tomorrow documented in this encounter Plan of Treatment Upcoming Encounters Date Type Department Care Team (Late st Contact Info) Description 07/14/2025 8:10 AM EMERGENCY ROOM RN Office Visit [facility] Family Medicine [address] [phone] Zhen Farah II, MD [address] [place] [id number] documented as of this encounter Goals Goal Patient Goal Type Associated Problems Recent Progress Patient-Stated? Author Health - patient able to perform ADLs independently Lifestyle Berta Archer RN documented as of this encounter Visit Diagnoses Not on filedocumented in this encounter Additional Health Concerns Assessment Noted Time PHQ-9 Depression Total Score: 0 08/31/19 22 9:03 AM EMERGENCY ROOM RN documented as of this encounter Care Teams Inlayer Silver Relationship Specialty Start Date End Date Zhen Farah II, MD [address] [place] [id number] PCP - General FAMILY PRACTICE 04/18/22 documented as of this encounter
--- OUTSIDE RECORDS SUMMARY | 2025-05-09 20:26 | XMS_ITS ---
Author Organization [facility] Address [address] [place] [address] Care Team Providers Care Bellman Name Role Phone Gagan NASSAR MD, Zhen Lees Primary Care Provid er Active Problems Problem Noted Date Diagnosed Date Dyslipidemia 04/12/2023 Cough 04/12/2023 Anxiety disorder 04/12/2023 Malignant melanoma of skin 04/12/2023 Obstructive sleep apnea syndrome 04/12/2023 Lymphadenopathy, inguinal 03/22/2023 Acute deep vein thrombosis (DVT) of left peronea l vein 03/09/2023 Mediastinal lymphadenopathy 03/09/2023 PE (pulmonary thromboembolism) 03/09/2023 Numbness and tingling in both hands 12/21/2022 Vitamin D deficiency 12/21/2022 LLQ abdominal pain 10/13/2022 Overview (04/12/2023): Added automatically from request for surgery [id number] Heartburn 10/13/2022 Overview (04/12/2023): Added automatically from request for surgery [id number] BRBPR (bright red blood per rectum) 10/13/2022 Overview (04/12/2023): Added automatically from request for surgery [id number] Hypothyroidism (acquired) 05/27/2021 Post traumatic stress disorder (PTSD) 05/11/2021 Primary insomnia 05/11/2021 Chronic deep vein thrombosis (DVT) of proximal vein of right lower extremity 05/11/2021 Neck pain, chronic 05/11/2021 Left elbow pain 09/11/2019 Arm swelling 09/02/2019 Chronic left shoulder pain 07/29/2019 Chronic deep vein thrombosis (DVT) of brachial vein of right upper extremity 03/25/2019 Nontraumatic compartment syn drome of unspecified lower extremity 11/13/2018 Chronic right shoulder pain 10/25/2018 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 Muscle pain 01/18/2017 Acute embolism and thrombosi s of unspecified deep veins of unspecified lower extremity 09/19/2016 Pain in right shoulder 09/19/2016 Attention and concentration deficit 07/27/2015 Insomnia, unspecified 07/27/2015 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 04/22/2015 Mixed hyperlipidemia 04/22/2015 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 04/08/2015 Malignant melanoma of back 03/30/2015 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 03/30/2015 Recurrent deep vein thrombosis 03/30/2015 Anxiety state 03/10/2015 Obstructive sleep apnea 03/10/2015 Personal history of malignant melanoma of skin 1 Attention deficit hyperactivity disorder (ADHD) 08/13/2013 Overview (04/14/2019): TAURUS MAKIT Attention deficit hyperactivity disorder (ADHD) 08/13/2013 Overview (04/12/2023): Overview: TAURUS DALE ASST TAURUS DALE ASST Peripheral opacity of cornea 02/15/2010 Other and unspecified hyperlipidemia 07/06/2009 Pure hypercholesterolemia 07/06/2009 Health examination of defined subpopulation 12/0 07/2008 Overweight 06/08/2009 Condyloma acuminatum 02/03/2009 Family history of early CAD 10/22/2008 Hypothyroidism 10/22/2008 Current Treatment and Therapy Plans No current plan information found. Past Treatment and Therapy Plans No past plan information found. Lifetime Dose Tracking * Chemical Lifetime Dose Automatic Entry Manual Entr y Fluoro Time 15 minutes 15 minutes 0 minutes Air kerma at the reference point (Ka,r) 442 mGy 4 42 mGy 0 mGy DLP 734 mGycm 734 mGycm 0 mGycm Resolved Problems Problem Noted Date Diagnosed Date Resolved Date Pain in right shoulder 09/19/201606/19
--- OUTSIDE RECORDS SUMMARY | 2025-05-09 20:26 | XMS_ITS | Encounter Summary ---
Author Organization [facility] Address Formerly [facility], [id number] [place] [address] Care Team Providers Care Harness Worker Name Role Phone Gagan NASSAR MD, Zhen Bird Primary Care Provider Encounter Details Date Type Department Care Team (Latest Contact Info) Description 11/14/[email or web address] [facility] Multispecialty Care - [facility] [address], [address] [place] [phone] Racheal Trinidad NP [address] [facility] [address] [place], [place] [phone] left-sided varicoceles Social History Tobacco Use Types Packs/Day Years [...] place to sleep or slept in a care home (including now)? No 08/22/2022 Sex and Gender Information Value Date Recorded Sex Assigned at Male 08/21/2024 8:36 AM SHEAR SCRAPMAN Legal Sex Male 9:10 AM CDT Gender Identity Male 08/25/2024 7:05 AM SHEAR SCRAPMAN Sexual Orientation Not on file COVID-19 Exposure Response Date Recorded In the last 10 days, have yo u been in contact with someone who was confirmed or suspected to have Coronavirus/COVID-19? No / Unsure 11/03/2022 1:34 PM CDT documented as of this encounter Functional Status * RETIRED Are you deaf or do you have serious difficulty hearing Answer Date of Assessment Author Status No 08/22/2022 4:56 PM SHEAR SCRAPMAN Activ e * RETIRED Are you blind or do you have serious difficulty seeing, even when wearing glasses? Answer Date of Assessment Author Status No 08/22/2022 4:56 PM SHEAR SCRAPMAN Activ e * Do you have serious difficulty walking or climbing stairs? Answer Date of Assessment Author Status No 08/22/2022 4:56 PM SHEAR SCRAPMAN Mona Harris R N Active * Do you have difficulty dressing or bathing? Answer Date of Assessment Author Status No 08/22/2022 4:56 PM SHEAR SCRAPMAN Mona Harris R N Active * Because of a physical, mental, or emotional condition, do you have difficulty doing errands alone such as visiting a doctor's office or shopping? Answer Date of Assessment Author Status No 08/22/2022 4:56 PM SHEAR SCRAPMAN Mona Harris R N Active documented as of this encounter Mental Status * Because of a physical, mental, or emotional condition, do you have serious difficulty concentrating, remembering, or making decisions? Answer Entry Date Author Status No 08/22/2022 4:56 PM SHEAR SCRAPMAN Mona Harris R N Active documented in this encounter Plan of Treatment Upcoming Encounters Date Type Department Care Team (Late st Contact Info) Description 07/14/2025 8:10 AM SHEAR SCRAPMAN Office Visit [facility] Family Medicine - [place] [address] [place] [phone] Zhen Farah II, MD [address] [place] [address] documented as of this encounter Goals Goal Patient Goal Type Associated Problems Recent Progress Patient-Stated? Author Health - patient able to perform ADLs independently Lifestyle Berta Archer RN documented as of this encounter Visit Diagnoses Not on filedocumented in this encounter Additional Health Concerns Assessment Noted Time PHQ-9 Depression Total Score: 0 08/31/19 22 9:03 AM SHEAR SCRAPMAN documented as of this encounter Care Teams Harness Worker Relationship Specialty Start Date End Date Zhen Farah II, MD [address] [place], [place] [phone] PCP - General FAMILY PRACTICE 04/18/22 documented as of this encounter
--- OUTSIDE RECORDS SUMMARY | 2025-05-09 20:26 | XMS_ITS | Encounter Summary ---
Author Organization [facility] Address [address] [place] [address] Care Team Providers Care Medical Record Technician Name Role Phone Gagan NASSAR MD, Zhen Bird Primary Care Provider Encounter Details Date Type Department Care Team (Late st Contact Info) Description 09/05/2024 [employer] Message Enc [facility] Family Medicine - [place] [address] Zhen Farah II, MD [address] [place] [address] Physical therapy referral Social History Tobacco Use Types Packs/Day Years Used Date Smoking Tobacco: Never Smokeless Tobacco: Never Comments:na Alcohol Use Standard Drinks/Week Comments Yes 0 [...] Date Recorded Patient Health Questionnaire-2 Score 0 07/21/2024 Hunger Vital Sign Answer Date Recorded Within [...] place to sleep or slept in a chcf (including now)? No 08/22/2022 Sex and Gender Information Value Date Recorded Sex Assigned at Male 08/21/2024 8:36 AM BARK SPUDDER Legal Sex Male 9:10 AM CDT Gender Identity Male 08/25/2024 7:05 AM BARK SPUDDER Sexual Orientation Not on file documented as of this encounter Functional Status * RETIRED Are you deaf or do you have serious difficulty hearing Answer Date of Assessment Author Status No 08/22/2022 4:56 PM BARK SPUDDER Activ e * RETIRED Are you blind or do you have serious difficulty seeing, even when wearing glasses? Answer Date of Assessment Author Status No 08/22/2022 4:56 PM BARK SPUDDER Activ e * Do you have serious difficulty walking or climbing stairs? Answer Date of Assessment Author Status No 08/22/2022 4:56 PM BARK SPUDDER Mona Harris R N Active * Do you have difficulty dressing or bathing? Answer Date of Assessment Author Status No 08/22/2022 4:56 PM BARK SPUDDER Mona Harris R N Active * Because of a physical, mental, or emotional condition, do you have difficulty doing errands alone such as visiting a doctor's office or shopping? Answer Date of Assessment Author Status No 08/22/2022 4:56 PM BARK SPUDDER Mona Harris R N Active documented as of this encounter Mental Status * Because of a physical, mental, or emotional condition, do you have serious difficulty concentrating, remembering, or making decisions? Answer Entry Date Author Status No 08/22/2022 4:56 PM BARK SPUDDER Mona Harris R N Active documented in this encounter Plan of Treatment Upcoming Encounters Date Type Department Care Team (Late st Contact Info) Description 07/14/2025 8:10 AM BARK SPUDDER Office Visit [facility] Family Medicine - [place] [address] [place] [address] Zhen Farah II, MD [address] [place], [place] [phone] documented as of this encounter Goals Goal Patient Goal Type Associated Problems Recent Progress Patient-Stated? Author Health - patient able to perform ADLs independently Lifestyle Berta Archer RN documented as of this encounter Visit Diagnoses Not on filedocumented in this encounter Additional Health Concerns Assessment Noted Time PHQ-9 Depression Total Score: 0 07/21/19 25 7:12 AM BARK SPUDDER documented as of this encounter Care Teams Medical Record Technician Relationship Specialty Start Date End Date Zhen Farah II, MD [address] [place], [place] [phone] PCP - General FAMILY PRACTICE 04/18/22 documented as of this encounter
--- OUTSIDE RECORDS SUMMARY | 2025-05-09 20:26 | XMS_ITS | Encounter Summary ---
Author Organization [facility] Address [address] [place] [address] Care Team Providers Care Spindle Carver Name Role Phone Gagan NASSAR MD, Zhen Bird Primary Care Provider Encounter Details Date Type Department Care Team (Late st Contact Info) Description 07/11/2024 [employer] Message Enc [facility] Family Medicine - [place] [address] Zhen Farah II, MD [address] [place] [address] Refil Social History Tobacco Use Types Packs/Day Years [...] Date Recorded Patient Health Questionnaire-2 Score 0 07/24/2023 Hunger Vital Sign Answer Date Recorded Within [...] place to sleep or slept in a nursing home (including now)? No 08/22/2022 Sex and Gender Information Value Date Recorded Sex Assigned at Male 08/21/2024 8:36 AM SLACKLINE OPERATOR Legal Sex Male 9:10 AM CDT Gender Identity Male 08/25/2024 7:05 AM SLACKLINE OPERATOR Sexual Orientation Not on file documented as of this encounter Functional Status * RETIRED Are you deaf or do you have serious difficulty hearing Answer Date of Assessment Author Status No 08/22/2022 4:56 PM SLACKLINE OPERATOR Activ e * RETIRED Are you blind or do you have serious difficulty seeing, even when wearing glasses? Answer Date of Assessment Author Status No 08/22/2022 4:56 PM SLACKLINE OPERATOR Activ e * Do you have serious difficulty walking or climbing stairs? Answer Date of Assessment Author Status No 08/22/2022 4:56 PM SLACKLINE OPERATOR Mona Harris R N Active * Do you have difficulty dressing or bathing? Answer Date of Assessment Author Status No 08/22/2022 4:56 PM SLACKLINE OPERATOR Mona Harris R N Active * Because of a physical, mental, or emotional condition, do you have difficulty doing errands alone such as visiting a doctor's office or shopping? Answer Date of Assessment Author Status No 08/22/2022 4:56 PM SLACKLINE OPERATOR Mona Harris R N Active documented as of this encounter Mental Status * Because of a physical, mental, or emotional condition, do you have serious difficulty concentrating, remembering, or making decisions? Answer Entry Date Author Status No 08/22/2022 4:56 PM SLACKLINE OPERATOR Mona Harris R N Active documented in this encounter Plan of Treatment Upcoming Encounters Date Type Department Care Team (Late st Contact Info) Description 07/14/2025 8:10 AM SLACKLINE OPERATOR Office Visit [facility] Family Medicine - [place] [address] [place] [address] Zhen Farah II, MD [address] [place] [address] documented as of this encounter Goals Goal Patient Goal Type Associated Problems Recent Progress Patient-Stated? Author Health - patient able to perform ADLs independently Lifestyle Berta Archer RN documented as of this encounter Visit Diagnoses Not on filedocumented in this encounter Additional Health Concerns Assessment Noted Time PHQ-9 Depression Total Score: 0 08/31/19 22 9:03 AM SLACKLINE OPERATOR documented as of this encounter Care Teams Spindle Carver Relationship Specialty Start Date End Date Zhen Farah II, MD [address] [place] [address] PCP - General FAMILY PRACTICE 04/18/22 documented as of this encounter
--- OUTSIDE RECORDS SUMMARY | 2025-05-09 20:26 | XMS_ITS | Encounter Summary ---
Author Organization [facility] Address [facility] [place] [address] Care Team Providers Care Licensed Pharmacist Name Role Phone Gagan NASSAR MD, Zhen Bird Primary Care Provider Encounter Details Date Type Department Care Team (Late st Contact Info) Description 08/31/[address] Message Enc [facility] Multispecialty Care - [address], [address] [place] [address] [employer], [facility] Provider medication Social History Tobacco Use Types Packs/Day Years [...] place to sleep or slept in a fdc (including now)? No 08/22/2022 Sex and Gender Information Value Date Recorded Sex Assigned at Male 08/21/2024 8:36 AM SUPERVISOR STERILE PROCESSING Legal Sex Male 9:10 AM CDT Gender Identity Male 08/25/2024 7:05 AM SUPERVISOR STERILE PROCESSING Sexual Orientation Not on file documented as of this encounter Functional Status * RETIRED Are you deaf or do you have serious difficulty hearing Answer Date of Assessment Author Status No 08/22/2022 4:56 PM SUPERVISOR STERILE PROCESSING Activ e * RETIRED Are you blind or do you have serious difficulty seeing, even when wearing glasses? Answer Date of Assessment Author Status No 08/22/2022 4:56 PM SUPERVISOR STERILE PROCESSING Activ e * Do you have serious difficulty walking or climbing stairs? Answer Date of Assessment Author Status No 08/22/2022 4:56 PM SUPERVISOR STERILE PROCESSING Mona Harris R N Active * Do you have difficulty dressing or bathing? Answer Date of Assessment Author Status No 08/22/2022 4:56 PM SUPERVISOR STERILE PROCESSING Mona Harris R N Active * Because of a physical, mental, or emotional condition, do you have difficulty doing errands alone such as visiting a doctor's office or shopping? Answer Date of Assessment Author Status No 08/22/2022 4:56 PM SUPERVISOR STERILE PROCESSING Mona Harris R N Active documented as of this encounter Mental Status * Because of a physical, mental, or emotional condition, do you have serious difficulty concentrating, remembering, or making decisions? Answer Entry Date Author Status No 08/22/2022 4:56 PM SUPERVISOR STERILE PROCESSING Mona Harris R N Active documented in this encounter Plan of Treatment Upcoming Encounters Date Type Department Care Team (Late st Contact Info) Description 07/14/2025 8:10 AM SUPERVISOR STERILE PROCESSING Office Visit [facility] Family Medicine - [place] [address] [place] [phone] Zhen Farah II, MD [address] [place] [address] documented as of this encounter Goals Goal Patient Goal Type Associated Problems Recent Progress Patient-Stated? Author Health - patient able to perform ADLs independently Lifestyle Berta Archer RN documented as of this encounter Visit Diagnoses Not on filedocumented in this encounter Additional Health Concerns Assessment Noted Time PHQ-9 Depression Total Score: 0 08/31/19 22 9:03 AM SUPERVISOR STERILE PROCESSING documented as of this encounter Care Teams Licensed Pharmacist Relationship Specialty Start Date End Date Zhen Farah II, MD [address] [place], [place] [phone] PCP - General FAMILY PRACTICE 04/18/22 documented as of this encounter
--- OUTSIDE RECORDS SUMMARY | 2025-05-09 20:26 | XMS_ITS | Encounter Summary ---
Author Organization [facility] Address [address] [place] [address] Care Team Providers Care Rouge Sifter Name Role Phone Gagan NASSAR MD, Zhen Bird Primary Care Provider Encounter Details Date Type Department Care Team (Late st Contact Info) Description 10/11/2022 [employer] Message Enc [facility] Family Medicine - [place] [address] Zhen Farah II, MD [address] [place] [address] Disability claim papers Social History Tobacco Use Types Packs/Day Years [...] place to sleep or slept in a prison (including now)? No 08/22/2022 Sex and Gender Information Value Date Recorded Sex Assigned at Male 08/21/2024 8:36 AM RAILROAD SWITCHMAN Legal Sex Male 9:10 AM CDT Gender Identity Male 08/25/2024 7:05 AM RAILROAD SWITCHMAN Sexual Orientation Not on file COVID-19 Exposure Response Date Recorded In the last 10 days, have yo u been in contact with someone who was confirmed or suspected to have Coronavirus/COVID-19? No / Unsure 10/10/2022 10:09 AM CDT documented as of this encounter Functional Status * RETIRED Are you deaf or do you have serious difficulty hearing Answer Date of Assessment Author Status No 08/22/2022 4:56 PM RAILROAD SWITCHMAN Activ e * RETIRED Are you blind or do you have serious difficulty seeing, even when wearing glasses? Answer Date of Assessment Author Status No 08/22/2022 4:56 PM RAILROAD SWITCHMAN Activ e * Do you have serious difficulty walking or climbing stairs? Answer Date of Assessment Author Status No 08/22/2022 4:56 PM RAILROAD SWITCHMAN Mona Harris R N Active * Do you have difficulty dressing or bathing? Answer Date of Assessment Author Status No 08/22/2022 4:56 PM RAILROAD SWITCHMAN Mona Harris R N Active * Because of a physical, mental, or emotional condition, do you have difficulty doing errands alone such as visiting a doctor's office or shopping? Answer Date of Assessment Author Status No 08/22/2022 4:56 PM RAILROAD SWITCHMAN Mona Harris R N Active documented as of this encounter Mental Status * Because of a physical, mental, or emotional condition, do you have serious difficulty concentrating, remembering, or making decisions? Answer Entry Date Author Status No 08/22/2022 4:56 PM RAILROAD SWITCHMAN Mona Harris R N Active documented in this encounter Progress Notes * Jayne Hernandez MA - 10/12/2022 10:17 AM CDT Spoke to patient and he said he had it sent here/I will check up front and put it on your desk for completion documented in this encounter Plan of Treatment Upcoming Encounters Date Type Department Care Team (Late st Contact Info) Description 07/14/2025 8:10 AM RAILROAD SWITCHMAN Office Visit [facility] Family Medicine - [address] [phone] Zhen Farah II, MD [address] [place] [address] documented as of this encounter Goals Goal Patient Goal Type Associated Problems Recent Progress Patient-Stated? Author Health - patient able to perform ADLs independently Lifestyle Berta Archer RN documented as of this encounter Visit Diagnoses Not on filedocumented in this encounter Additional Health Concerns Assessment Noted Time PHQ-9 Depression Total Score: 0 08/31/19 22 9:03 AM RAILROAD SWITCHMAN documented as of this encounter Care Teams Rouge Sifter Relationship Specialty Start Date End Date Zhen Farah II, MD [address] [place] [address] PCP - General FAMILY PRACTICE 04/18/22 documented as of this encounter
--- OUTSIDE RECORDS SUMMARY | 2025-05-09 20:26 | XMS_ITS | Clinical Summary ---
Author Organization [facility] [employer] Address [address] [place] [address] Care Team Providers Care Bobbin Disker Name Role Phone [facility] [address] [place] [address] Primary Care Prov ider Source Comments [facility],non-owned Affiliates and Associated Physician Practices is amultiple site organization consisting of ambulatory clinics and hospital sitesin [place], [place], [place] and [place]. This disclosure is being madepursuant to the Care Everywhere program and may not contain all information available regarding this patient. Last updated 18.[facility] Allergies Active Allergy Reactions Criticality Noted Date Comments Levaquin Rash Medium 01/29/2009 Levofloxacin Urticaria Medium 03/30/2015 Penicillins Other Low 10/22/2008 As of child unsure of reaction Medications * Be aware that medications may not be up to date on this document. Alwaysverify current medications with the patient. 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 10/16/2017 Acute embolism and thrombosi s of unspecified deep veins of unspecified lower extremity 09/19/2016 Pain in right shoulder 09/19/2016 Attention and concentration deficit 07/27/2015 Insomnia, unspecified 07/27/2015 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 04/22/2015 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 (AF LURIA, FLUZONE TRIVALENT; 6MO+) (IIV3) 04/23/2014,05/26/2010,06/11/2009 FLU VACCINE TRI IIV3 SPLIT P F IM (FLUVIRIN) 04/27/2016,04/09/2015,04/15/2013 HEP A VACCINE, ADULT 03/09/2002,07/09/2000 HEP B VACCINE, ADULT 3 DOSE 09/11/2008, 8,10/15/2007 INFLUENZA VACCINE 04/22/2008, 8,10/12/2006,05/09 INFLUENZA VACCINE, QUADR. (F LUZONE; FLULAVAL; FLUARIX; AFLURIA QUADRIVALENT; 6MO+), 0.5 ML (IIV4) 04/15/2013 MENINGOCOCAL MENINGITIS 01/07/2000 MENINGOCOCCAL ACWY (MCV4P) VAC IM 06/22/2014 MMR 06/22/2014,01/07/2000 POLIO OPV 01/07/2000 TD (AGE 7-ADULT) 01/07/2000 TDAP (7yrs+) 01/24/2010 TYPHOID IM 07/09/2000 YELLOW FEVER 07/09/2000 Family History Medical History Relation Name Comments Hypertension Father Diabetes Mother Relation Name Status Comments Father Alive Mother Alive Social History Tobacco Use Types Packs/Day Years Used Date Smoking Tobacco: Never Smokeless Tobacco: Never Tobacco Cessation:Counseling Given: No Alcohol Use Standard Drinks/Week Comments No 0 (1 standard drink = 0.6 oz pur e alcohol) rarely Sex and Gender Information Value Date Recorded Sex Assigned at Not on file Legal Sex Male 4:22 AM ROUTE CDL DRIVER Gender Identity Not on file Sexual Orientation Not on file Last Filed Vital Signs Vital Sign Reading Time Taken Comments Blood Pressure 143/93 09/11/2019 2:30 PM ROUTE CDL DRIVER Pulse 71 09/11/2019 2:30 PM ROUTE CDL DRIVER Temperature 36.9 C (98.4 F) 09/11/2019 2:26 PM ROUTE CDL DRIVER Respiratory Rate 20 09/11/2019 2:26 PM ROUTE CDL DRIVER Oxygen Saturation 95% 09/11/2019 2:26 PM ROUTE CDL DRIVER Inhaled Oxygen Concentration - - Weight 111.1 kg (245 lb) 09/11/2019 2:26 PM ROUTE CDL DRIVER Height 175.3 cm (5' 9) 09/11/2019 2:26 PM ROUTE CDL DRIVER Body Mass Index 36.18 09/11/2019 2:26 PM ROUTE CDL DRIVER Plan of Treatment Health Maintenance Due Date Last Done Comments HIV SCREENING 1995 HEPATITIS C SCREENING 06/10/1998 HPV VACCINE (1 - 3-dose SCDM series) 2007 DTAP/TDAP/TD VACCINES (3 - Td or Tdap) 01/25/2020 01/24/2010, 01/07/2000 DEPRESSION SCREENING 07/09/2024 COVID-19 VACCINE ( season) 2025 INFLUENZA VACCINE (#1) 2025 8, 04/27/2016, 04/09/2015, Additional history exists ZOSTER VACCINE (1 of 2) 2030 HEPATITIS B VACCINE Completed 09/11/2008, 01/16/2008, 10/15/2007 MENINGOCOCCAL GROUPS A/C/Y/W VACCINE Aged Out 06/22/2014, 01/07/2000 No longer eligibl e based on patient's age to complete this topic HIB VACCINE Aged Out No longer eligi ble based on patient's age to complete this topic MENINGOCOCCAL (Group B) VACCINE SHARED DECISION-MAKING Aged Out No longer eligible based on patient's age to complete this topic PNEUMOCOCCAL VACCINE Aged Out No long er eligible based on patient's age to complete this topic Insurance Advance Directives * Full Code (Latest Code Status on File) Date Activated Date Inactivated Comments 03/01/2018 6:45 PM 03/02/2018 11:58 AM Care Teams Bobbin Disker Relationship Specialty Start Date End Date [facility], [facility] [address] [place] [address] PCP - General 01/09/18
--- OUTSIDE RECORDS SUMMARY | 2025-05-09 20:26 | XMS_ITS | Clinical Summary ---
Author Organization [facility] Address [address] [place] [address] Phone Care Team Providers Care Otr Truck Driver Name Role Phone Gagan NASSAR MD, Zhen Lees Primary Care Provid er Allergies Active Allergy Reactions Criticality Noted Date Comments Levofloxacin Hives,Rash High 01/29/2009 Hives Hives Penicillins Hives,Other (see Comments),Unknown High 10/22/2008 As of child unsure of reaction As of child unsure of reaction Hives As of child unsure of reaction As of child unsure of reaction Hives Medications warfarin (COUMADIN) 2 MG Tablet 3 Active traZODone (DESYREL) 50 MG Tablet 3 Active atorvastatin (LIPITOR) 20 MG Tablet 3 Active ARIPiprazole (ABILIFY) 5 MG Tablet Take 5 mg by mouth daily. Active pantoprazole (PROTONIX) 40 MG Tablet Delayed Response Take 40 mg by mouth daily. 5 Active propranolol (INDERAL) 10 MG Tablet Take 10 mg by mouth daily. 5 Active traMADol (ULTRAM) 50 MG Tablet Take 50 mg by mouth every 6 hours as needed for Mild or more severe pain. 4 Active albuterol 108 (90 Base) MCG/ACT Aerosol Solution take 2 Puffs by inhalation every 4 hours as needed for Wheezing or Cough. 5 Active buPROPion (WELLBUTRIN) 300 MG TABLET SR 24 HR XL tablet Take 300 mg by mouth every morning. Active levothyroxine (SYNTHROID) 175 MCG Tablet Oral; Duration: 90 Days Active Active Problems Problem Noted Date Diagnosed Date Elevated blood pressure reading 03/12/2025 Lymphadenopathy, inguinal 03/22/2023 Vitamin D deficiency 12/21/2022 Numbness and tingling in both hands 12/21/2022 PE (pulmonary thromboembolism) Acute deep vein thrombosis (DVT) of left peronea l vein Mediastinal lymphadenopathy Encounters Date Type Department Care Team Description 03/12/2025 8:30 AM CDT Office Visit [facility] [address] [address] Maurice Martins MD PE (pulmonary thromboembolism) (HCC) (Primary Dx); Acute deep vein thrombosis (DVT) of left peroneal vein (HCC) 03/12/2025 Travel from Last 3 Months Family History Medical History Relation Name Comments Heart Attack Father Relation Name Status Comments Father Social History Tobacco Use Types Packs/Day Years Used Date Smoking Tobacco: Never Smokeless Tobacco: Never Tobacco Cessation:Counseling Given: Not Answered Alcohol Use Standard Drinks/Week Comments Not Currently 0 (1 standard drink = 0.6 oz pur e alcohol) Sex and Gender Information Value Date Recorded Sex Assigned at Not on file Legal Sex Male 9:39 AM CDT Gender Identity Not on file Sexual Orientation Not on file Last Filed Vital Signs Vital Sign Reading Time Taken Comments Blood Pressure 138/94 03/12/2025 8:17 AM CDT Pulse 66 03/12/2025 8:17 AM CDT Temperature 36.5 C (97.7 F) 03/12/2025 8:17 AM CDT Respiratory Rate 16 09/08/2024 8:38 AM BOAT HOP Oxygen Saturation 95% 03/12/2025 8:17 AM CDT Inhaled Oxygen Concentration - - Weight 113.5 kg (250 lb 4.8 oz) 03/12/2025 8:17 AM CDT Height 175.3 cm (5' 9) 03/12/2025 8:17 AM CDT Body Mass Index 36.96 03/12/2025 8:17 AM CDT Plan of Treatment Upcoming Encounters Date Type Department Care Team (Late st Contact Info) Description 03/11/2026 8:30 AM CDT Office Visit [facility] [address] [place] [address] Maurice Martins MD [address] [place], [place] [id number] Health Maintenance Due Date Last Done Comments Hepatitis C Virus (HCV) Screening 1980 Human Papillomavirus (HPV) Immunization (1 - 3-dose SCDM series) 2007 Influenza Immunization (#1) 03/09/202504/10, 04/27/2016, 04/27/2016, Additional history exists SARS-COV-2 Immunization ( - 2024- season) 2025 Respiratory Syncytial Virus (RSV) Immunization (Adult) (1 - 1-dose 75+ series) 2055 Hepatitis B Immunization Completed 009, 01/16/2008, 10/15/2007 Meningococcal Immunization (ACWY) Aged Out 06/22/2014, 01/07/2000 No longer eligibl e based on patient's age to complete this topic DTaP/Tdap/Td Immunization Discontinued 2016, 01/24/2010, 07/09/2007, Additional history exists TdaP Immunization Completed 11/06/2016, 01/24/2010 Pneumococcal Immunization Combined Aged Out No longer eligible based on patient's age to complete this topic Rotavirus Immunization Aged Out No lo nger eligible based on patient's age to complete this topic Insurance [facility] CLAIM[facility] Care Teams Otr Truck Driver Relationship Specialty Start Date End Date Zhen Farah II, MD [address] [place] [address] PCP - General Family Medicine 09/01/22
--- OUTSIDE RECORDS SUMMARY | 2025-05-09 20:26 | XMS_ITS | Encounter Summary ---
Author Organization [facility] Address [address] [place] [address] Care Team Providers Care Duplicate Maker Name Role Phone Gagan NASSAR MD, Zhen Bird Primary Care Provider Encounter Details Date Type Department Care Team (Late st Contact Info) Description 11/17/2022 [email or web address] Message Enc [facility] Family Medicine - [place] [address] Zhen Farah II, MD [address] [place] [address] Short of breath with some conjestion Social History Tobacco Use Types Packs/Day Years [...] place to sleep or slept in a halfway (including now)? No 08/22/2022 Sex and Gender Information Value Date Recorded Sex Assigned at Male 08/21/2024 8:36 AM ACCOUNT SPECIALIST Legal Sex Male 9:10 AM CDT Gender Identity Male 08/25/2024 7:05 AM ACCOUNT SPECIALIST Sexual Orientation Not on file COVID-19 Exposure [...] Assessment Author Status No 08/22/2022 4:56 PM ACCOUNT SPECIALIST Activ e * RETIRED Are you blind or do you have serious difficulty seeing, even when wearing glasses? Answer Date of Assessment Author Status No 08/22/2022 4:56 PM ACCOUNT SPECIALIST Activ e * Do you have serious difficulty walking or climbing stairs? Answer Date of Assessment Author Status No 08/22/2022 4:56 PM Mona Jimenez R N Active * Do you have difficulty dressing or bathing? Answer Date of Assessment Author Status No 08/22/2022 4:56 PM ACCOUNT SPECIALIST Mona Harris R N Active * Because of a physical, mental, or emotional condition, do you have difficulty doing errands alone such as visiting a doctor's office or shopping? Answer Date of Assessment Author Status No 08/22/2022 4:56 PM Mona Jimenez R N Active documented as of this encounter Mental Status * Because of a physical, mental, or emotional condition, do you have serious difficulty concentrating, remembering, or making decisions? Answer Entry Date Author Status No 08/22/2022 4:56 PM Mona Jimenez R N Active documented in this encounter Progress Notes * Tennille Lance MA - 11/17/2022 10:38 AM CDT Pt is scheduled to come in next Sunday11/24/22 * Tennille Lance MA - 11/17/2022 8:48 AM CDT Patient c/o of congestion, cough and SOB. Please advise. documented in this encounter Plan of Treatment Upcoming Encounters Date Type Department Care Team (Late st Contact Info) Description 07/14/2025 8:10 AM ACCOUNT SPECIALIST Office Visit [facility] Family Medicine - [place] [address] [place] [phone] Zhen Farah II, MD [address] [place], [place] [phone] documented as of this encounter Goals Goal Patient Goal Type Associated Problems Recent Progress Patient-Stated? Author Health - patient able to perform ADLs independently Lifestyle No [place], Berta M, RN documented as of this encounter Visit Diagnoses Not on filedocumented in this encounter Additional Health Concerns Assessment Noted Time PHQ-9 Depression Total Score: 0 08/31/19 22 9:03 AM ACCOUNT SPECIALIST documented as of this encounter Care Teams Duplicate Maker Relationship Specialty Start Date End Date Zhen Farah II, MD [address] [place] [address] PCP - General FAMILY PRACTICE 04/18/22 documented as of this encounter
--- OUTSIDE RECORDS SUMMARY | 2025-05-09 20:26 | XMS_ITS | Encounter Summary ---
Author Organization [facility] Address [address] [place] [address] Care Team Providers Care Ged Instructor Name Role Phone Gagan NASSAR MD, Zhen Bird Primary Care Provider Encounter Details Date Type Department Care Team (Late st Contact Info) Description 12/15/2022 [employer] Message Enc [facility] Family Medicine - [place] [address] Zhen Farah II, MD [address] [place] [address] Appt Social History Tobacco Use Types Packs/Day Years [...] place to sleep or slept in a penitentiary (including now)? No 08/22/2022 Sex and Gender Information Value Date Recorded Sex Assigned at Male 08/21/2024 8:36 AM ILLUMINATING ENGINEER Legal Sex Male 9:10 AM CDT Gender Identity Male 08/25/2024 7:05 AM ILLUMINATING ENGINEER Sexual Orientation Not on file COVID-19 Exposure [...] Assessment Author Status No 08/22/2022 4:56 PM ILLUMINATING ENGINEER Activ e * RETIRED Are you blind or do you have serious difficulty seeing, even when wearing glasses? Answer Date of Assessment Author Status No 08/22/2022 4:56 PM ILLUMINATING ENGINEER Activ e * Do you have serious difficulty walking or climbing stairs? Answer Date of Assessment Author Status No 08/22/2022 4:56 PM ILLUMINATING ENGINEER Mona Harris R N Active * Do you have difficulty dressing or bathing? Answer Date of Assessment Author Status No 08/22/2022 4:56 PM ILLUMINATING ENGINEER Mona Harris R N Active * Because of a physical, mental, or emotional condition, do you have difficulty doing errands alone such as visiting a doctor's office or shopping? Answer Date of Assessment Author Status No 08/22/2022 4:56 PM ILLUMINATING ENGINEER Mona Harris R N Active documented as of this encounter Mental Status * Because of a physical, mental, or emotional condition, do you have serious difficulty concentrating, remembering, or making decisions? Answer Entry Date Author Status No 08/22/2022 4:56 PM ILLUMINATING ENGINEER Mona Harris R N Active documented in this encounter Plan of Treatment Upcoming Encounters Date Type Department Care Team (Late st Contact Info) Description 07/14/2025 8:10 AM ILLUMINATING ENGINEER Office Visit [facility] Family Medicine [facility] [address] [place] [address] Zhen Farah II, MD [address] [place], [place] [phone] documented as of this encounter Goals Goal Patient Goal Type Associated Problems Recent Progress Patient-Stated? Author Health - patient able to perform ADLs independently Lifestyle Berta Archer RN documented as of this encounter Visit Diagnoses Not on filedocumented in this encounter Additional Health Concerns Assessment Noted Time PHQ-9 Depression Total Score: 0 08/31/19 9:03 AM ILLUMINATING ENGINEER documented as of this encounter Care Teams Ged Instructor Relationship Specialty Start Date End Date Zhen Farah II, MD [address] [place], [place] [phone] PCP - General FAMILY PRACTICE 04/18/22 documented as of this encounter
--- OUTSIDE RECORDS SUMMARY | 2025-05-09 20:26 | XMS_ITS | Encounter Summary ---
Author Organization [facility] Address [address] [place] [address] Care Team Providers Care Button Cutting Machine Operator Name Role Phone Gagan NASSAR MD, Zhen Bird Primary Care Provider Encounter Details Date Type Department Care Team (Late st Contact Info) Description 10/23/2022 [employer] Message Enc [facility] Family Medicine - [place] [address] Zhen Farah II, MD [address] [place] [address] Colonoscopy Social History Tobacco Use Types Packs/Day Years [...] place to sleep or slept in a group home (including now)? No 08/22/2022 Sex and Gender Information Value Date Recorded Sex Assigned at Male 08/21/2024 8:36 AM MUSIC JOURNALIST Legal Sex Male 9:10 AM CDT Gender Identity Male 08/25/2024 7:05 AM MUSIC JOURNALIST Sexual Orientation Not on file COVID-19 Exposure Response Date Recorded In the last 10 days, have yo u been in contact with someone who was confirmed or suspected to have Coronavirus/COVID-19? No / Unsure 10/26/2022 8:05 AM CDT documented as of this encounter Functional Status * RETIRED Are you deaf or do you have serious difficulty hearing Answer Date of Assessment Author Status No 08/22/2022 4:56 PM MUSIC JOURNALIST Activ e * RETIRED Are you blind or do you have serious difficulty seeing, even when wearing glasses? Answer Date of Assessment Author Status No 08/22/2022 4:56 PM MUSIC JOURNALIST Activ e * Do you have serious difficulty walking or climbing stairs? Answer Date of Assessment Author Status No 08/22/2022 4:56 PM Mona Jimenez R N Active * Do you have difficulty dressing or bathing? Answer Date of Assessment Author Status No 08/22/2022 4:56 PM MUSIC JOURNALIST Mona Harris R N Active * Because of a physical, mental, or emotional condition, do you have difficulty doing errands alone such as visiting a doctor's office or shopping? Answer Date of Assessment Author Status No 08/22/2022 4:56 PM Mona Jimenez R N Active * Calculated C-SSRS Risk Score (Lifetime/Recent) Answer Date of Assessment Author Status No Risk Indicated 10/26/2022 10:18 AM Cornelia Garcia RN Active * [place] Suicide Severity Rating Scale (Screener/Recent Self-Report) Question Answer Date of Assessment Author Status 1. Wish to be (Past 1 Month) No 10/26/2022 10:18 AM Annie Garcia RN Ac tinanette 6. Suicidal Behavior (Lifetime) No 10/26/2022 10:18 AM Annie Garcia RN Ac tive documented as of this encounter Mental Status * Because of a physical, mental, or emotional condition, do you have serious difficulty concentrating, remembering, or making decisions? Answer Entry Date Author Status No 08/22/2022 4:56 PM Mona Jimenez R N Active documented in this encounter Plan of Treatment Upcoming Encounters Date Type Department Care Team (Late st Contact Info) Description 07/14/2025 8:10 AM MUSIC JOURNALIST Office Visit [facility] Family Medicine - [place] [address] [place] [phone] Zhen Farah II, MD [address] [place] [address] documented as of this encounter Goals Goal Patient Goal Type Associated Problems Recent Progress Patient-Stated? Author Health - patient able to perform ADLs independently Lifestyle No Berta Dorsey RN documented as of this encounter Visit Diagnoses Not on filedocumented in this encounter Additional Health Concerns Assessment Noted Time PHQ-9 Depression Total Score: 0 02/23/20 22 9:03 AM MUSIC JOURNALIST documented as of this encounter Care Teams Button Cutting Machine Operator Relationship Specialty Start Date End Date Zhen Farah II, MD [address] [place] [address] PCP - General FAMILY PRACTICE 04/18/22 documented as of this encounter
--- OUTSIDE RECORDS SUMMARY | 2025-05-09 20:26 | XMS_ITS | Encounter Summary ---
Author Organization [facility] Address [address] [place] [address] Care Team Providers Care Director Of Corporate Strategy Name Role Phone Taz Vasquez MD Primary Care Provider Edilson Farah II, MD, Zhen Bird Primary Care Provider Encounter Details Date Type Department Care Team (Late Contact Info) Description 05/23/2021 MyChart Message Enc [facility] [address] Taz Vasquez MD Test results Social History Tobacco Use Types Packs/Day Years Used Date Smoking Tobacco: Never Smokeless Tobacco: Never Alcohol Use Standard Drinks/Week Comments Yes 0 (1 standard drink = 0.6 oz pur e alcohol) rare PHQ-2 Answer Date Recorded PHQ-2 Score - If the patient scores above 3, please move on to questions 3-9 0 05/11/2021 Sex and Gender Information Value Date Recorded Sex Assigned at Male 08/21/2024 8:36 AM HEEL SANDER RUBBER Legal Sex Male 9:10 AM CDT Gender Identity Male 08/25/2024 7:05 AM HEEL SANDER RUBBER Sexual Orientation Not on file COVID-19 Exposure Response Date Recorded In the last month, have you been in contact with someone who was confirmed or suspected to have Coronavirus / COVID-19? No / Unsure 05/11/2021 9:41 AM CDT documented as of this encounter Plan of Treatment Upcoming Encounters Date Type Department Care Team (Late Contact Info) Description 07/14/2025 8:10 AM HEEL SANDER RUBBER Office Visit [facility] [address] Zhen Farah II, MD [address] [place] [address] documented as of this encounter Visit Diagnoses Not on filedocumented in this encounter Additional Health Concerns Infection Onset Date Last Indicated Resolved Time COVID-19 Rule Out 01/31/2022 01/31/2022 01/31/2022 9:00 PM CDT COVID-19 Rule Out 08/22/2022 08/22/2022 08/22/2022 5:14 PM HEEL SANDER RUBBER Assessment Noted Time PHQ-9 Depression Total Score: 0 05/11/20 21 10:14 AM CDT documented as of this encounter Care Teams Director Of Corporate Strategy Relationship Specialty Start Date End Date Taz Vasquez MD PCP - General FAMILY PRACTICE 05/11/21 04/17/22 Zhen Farah II, MD [address] [place] [address] PCP - General FAMILY PRACTICE 04/18/22 documented as of this encounter
--- OUTSIDE RECORDS SUMMARY | 2025-05-09 20:26 | XMS_ITS | Encounter Summary ---
Author Organization [facility] Address [address] [facility] [place] [address] Care Team Providers Care Plan Consultant Name Role Phone [facility], [address] [place] [address] Primary Care Prov ider [facility] [place] Primary Care Provider [phone] [facility], [address] [place] [address] Primary Care Prov ider Reason for Visit * Reason Onset Date Comments Procedure Prior Auth Request 10/23/2017 Encounter Details Date Type Department Care Team (Late st Contact Info) Description 10/23/2017 Telephone [facility] [place] [address] Ankit Pham MD [address] [facility] [place] [address] Procedure Prior Auth Request Social History Tobacco Use Types Packs/Day Years Used Date Smoking Tobacco: Never Smokeless Tobacco: Never Alcohol Use Standard Drinks/Week Comments No 0 (1 standard drink = 0.6 oz pur e alcohol) Sex and Gender Information Value Date Recorded Sex Assigned at Not on file Legal Sex Male 4:22 AM VIOLIN REPAIRER Gender Identity Not on file Sexual Orientation Not on file documented as of this encounter Miscellaneous Notes * Telephone Encounter - Ella Bone - 11/08/2017 2:37 PM CDT Patient transferred from call center. Patient calling to get scheduled for right leg arteriogram because he says he received authorization from [facility] but has not a call from office. I tried to read notes and gave him U scheduling number to schedule appointment there because he is already scheduled for his compartment testing at that location. * Telephone Encounter - Kinjal Poon - 10/23/2017 1:39 PM CDT Prior Authorization for IR AIF__ , have been submitted to_[facility]_Via_fax- [phone]_. Pt ID# : [id number] Procedure Code(s): 78780 Rendering Office & NPI/ Tax ID # [facility] [id number] Awaiting reply. Submitted by: Kinjal Ly MA documented in this encounter Plan of Treatment Not on file documented as of this encounter Visit Diagnoses Not on filedocumented in this encounter Care Teams Plan Consultant Relationship Specialty Start Date End Date [address] [place], [place] [phone] PCP - General Family Medicine 10/10/17 01/03/18 [place], [place] PCP - General 01/04/18 01/08/[address] [place], [place] [address] PCP - General 01/09/18 documented as of this encounter
--- OUTSIDE RECORDS SUMMARY | 2025-05-09 20:26 | XMS_ITS | Encounter Summary ---
Author Organization [facility] Address [address] [place] [address] Care Team Providers Care Ict Help Desk Officer Name Role Phone Gagan NASSAR MD, Zhen Bird Primary Care Provider Encounter Details Date Type Department Care Team (Late st Contact Info) Description 07/15/2024 [employer] Message Enc [facility] Family Medicine - [place] [address] Zhen Farah II, MD [address] [place] [address] Mental health Social History Tobacco Use Types Packs/Day Years [...] place to sleep or slept in a detention (including now)? No 08/22/2022 Sex and Gender Information Value Date Recorded Sex Assigned at Male 08/21/2024 8:36 AM PETROL TANKER DRIVER Legal Sex Male 9:10 AM CDT Gender Identity Male 08/25/2024 7:05 AM PETROL TANKER DRIVER Sexual Orientation Not on file documented as of this encounter Functional Status * RETIRED Are you deaf or do you have serious difficulty hearing Answer Date of Assessment Author Status No 08/22/2022 4:56 PM PETROL TANKER DRIVER Activ e * RETIRED Are you blind or do you have serious difficulty seeing, even when wearing glasses? Answer Date of Assessment Author Status No 08/22/2022 4:56 PM PETROL TANKER DRIVER Activ e * Do you have serious difficulty walking or climbing stairs? Answer Date of Assessment Author Status No 08/22/2022 4:56 PM PETROL TANKER DRIVER Mona Harris R N Active * Do you have difficulty dressing or bathing? Answer Date of Assessment Author Status No 08/22/2022 4:56 PM PETROL TANKER DRIVER Mona Harris R N Active * Because of a physical, mental, or emotional condition, do you have difficulty doing errands alone such as visiting a doctor's office or shopping? Answer Date of Assessment Author Status No 08/22/2022 4:56 PM PETROL TANKER DRIVER Mona Harris R N Active documented as of this encounter Mental Status * Because of a physical, mental, or emotional condition, do you have serious difficulty concentrating, remembering, or making decisions? Answer Entry Date Author Status No 08/22/2022 4:56 PM PETROL TANKER DRIVER Mona Harris R N Active documented in this encounter Plan of Treatment Upcoming Encounters Date Type Department Care Team (Late st Contact Info) Description 07/14/2025 8:10 AM PETROL TANKER DRIVER Office Visit [facility] Family Medicine - [place] [address] [place] [address] Zhen Farah II, MD [address] [place] [address] documented as of this encounter Goals Goal Patient Goal Type Associated Problems Recent Progress Patient-Stated? Author Health - patient able to perform ADLs independently Lifestyle Berta Archer RN documented as of this encounter Visit Diagnoses Not on filedocumented in this encounter Additional Health Concerns Assessment Noted Time PHQ-9 Depression Total Score: 0 08/31/19 22 9:03 AM PETROL TANKER DRIVER documented as of this encounter Care Teams Ict Help Desk Officer Relationship Specialty Start Date End Date Zhen Farah II, MD [address] [place] [address] PCP - General FAMILY PRACTICE 04/18/22 documented as of this encounter
--- OUTSIDE RECORDS SUMMARY | 2025-05-09 20:26 | XMS_ITS | Encounter Summary ---
Author Organization [facility] - [facility] Address [facility] [place] [address] Care Team Providers Care Site Controller Name Role Phone Gagan NASSAR MD, Zhen Bird Primary Care Provider Encounter Details Date Type Department Care Team (Late st Contact Info) Description 02/18/2024 [employer] Message Enc [facility] Multispecialty Care - [address], [address] [place] [address] [facility] Provider refill Social History Tobacco Use Types Packs/Day Years [...] place to sleep or slept in a senior living (including now)? No 08/22/2022 Sex and Gender Information Value Date Recorded Sex Assigned at Male 08/21/2024 8:36 AM ROUTE SALES MANAGER Legal Sex Male 9:10 AM CDT Gender Identity Male 08/25/2024 7:05 AM ROUTE SALES MANAGER Sexual Orientation Not on file documented as of this encounter Functional Status * RETIRED Are you deaf or do you have serious difficulty hearing Answer Date of Assessment Author Status No 08/22/2022 4:56 PM ROUTE SALES MANAGER Activ e * RETIRED Are you blind or do you have serious difficulty seeing, even when wearing glasses? Answer Date of Assessment Author Status No 08/22/2022 4:56 PM ROUTE SALES MANAGER Activ e * Do you have serious difficulty walking or climbing stairs? Answer Date of Assessment Author Status No 08/22/2022 4:56 PM ROUTE SALES MANAGER Mona Harris R N Active * Do you have difficulty dressing or bathing? Answer Date of Assessment Author Status No 08/22/2022 4:56 PM ROUTE SALES MANAGER Mona Harris R N Active * Because of a physical, mental, or emotional condition, do you have difficulty doing errands alone such as visiting a doctor's office or shopping? Answer Date of Assessment Author Status No 08/22/2022 4:56 PM ROUTE SALES MANAGER Mona Harris R N Active documented as of this encounter Mental Status * Because of a physical, mental, or emotional condition, do you have serious difficulty concentrating, remembering, or making decisions? Answer Entry Date Author Status No 08/22/2022 4:56 PM ROUTE SALES MANAGER Mona Harris R N Active documented in this encounter Plan of Treatment Upcoming Encounters Date Type Department Care Team (Late st Contact Info) Description 07/14/2025 8:10 AM ROUTE SALES MANAGER Office Visit [facility] Family Medicine - [place] [address] [place] [phone] Zhen Farah II, MD [address] [place], [place] [phone] documented as of this encounter Goals Goal Patient Goal Type Associated Problems Recent Progress Patient-Stated? Author Health - patient able to perform ADLs independently Lifestyle Berta Archer RN documented as of this encounter Visit Diagnoses Not on filedocumented in this encounter Additional Health Concerns Assessment Noted Time PHQ-9 Depression Total Score: 0 08/31/19 9:03 AM ROUTE SALES MANAGER documented as of this encounter Care Teams Site Controller Relationship Specialty Start Date End Date Zhen Farah II, MD [address] [place], [place] [phone] PCP - General FAMILY PRACTICE 04/18/22 documented as of this encounter
--- OUTSIDE RECORDS SUMMARY | 2025-05-09 20:26 | XMS_ITS | Encounter Summary ---
Author Organization [facility] Address [address] [place] [address] Care Team Providers Care Door And Arrival Attendant Name Role Phone Gagan NASSAR MD, Zhen Bird Primary Care Provider Encounter Details Date Type Department Care Team (Late st Contact Info) Description 07/12/2023 [employer]opogo Message Enc [facility] Family Medicine - [place] [address] Zhen Farah II, MD [address] [place] [address] Appointment Social History Tobacco Use Types Packs/Day Years [...] place to sleep or slept in a retirement (including now)? No 08/22/2022 Sex and Gender Information Value Date Recorded Sex Assigned at Male 08/21/2024 8:36 AM ASSISTANT INVENTORY MANAGER Legal Sex Male 9:10 AM CDT Gender Identity Male 08/25/2024 7:05 AM ASSISTANT INVENTORY MANAGER Sexual Orientation Not on file documented as of this encounter Functional Status * RETIRED Are you deaf or do you have serious difficulty hearing Answer Date of Assessment Author Status No 08/22/2022 4:56 PM ASSISTANT INVENTORY MANAGER Activ e * RETIRED Are you blind or do you have serious difficulty seeing, even when wearing glasses? Answer Date of Assessment Author Status No 08/22/2022 4:56 PM ASSISTANT INVENTORY MANAGER Activ e * Do you have serious difficulty walking or climbing stairs? Answer Date of Assessment Author Status No 08/22/2022 4:56 PM ASSISTANT INVENTORY MANAGER Mona Harris, R N Active * Do you have difficulty dressing or bathing? Answer Date of Assessment Author Status No 08/22/2022 4:56 PM ASSISTANT INVENTORY MANAGER Mona Harris R N Active * Because of a physical, mental, or emotional condition, do you have difficulty doing errands alone such as visiting a doctor's office or shopping? Answer Date of Assessment Author Status No 08/22/2022 4:56 PM ASSISTANT INVENTORY MANAGER Mona Harris R N Active documented as of this encounter Mental Status * Because of a physical, mental, or emotional condition, do you have serious difficulty concentrating, remembering, or making decisions? Answer Entry Date Author Status No 08/22/2022 4:56 PM ASSISTANT INVENTORY MANAGER Mona Harris R N Active documented in this encounter Progress Notes * Keila Mann - 07/12/2023 7:45 AM CST Office called patient to remind him to get labs done before appt 07/24/23 at 3:40pm. He voiced understanding. STANT INVENTORY MANAGER documented in this encounter Plan of Treatment Upcoming Encounters Date Type Department Care Team (Late st Contact Info) Description 07/14/2025 8:10 AM ASSISTANT INVENTORY MANAGER Office Visit [facility] Family Medicine - [place] [address] [place] [phone] Zhen Farah II, MD [address] [place], [place] [phone] documented as of this encounter Goals Goal Patient Goal Type Associated Problems Recent Progress Patient-Stated? Author Health - patient able to perform ADLs independently Lifestyle Berta Archer RN documented as of this encounter Visit Diagnoses Not on filedocumented in this encounter Additional Health Concerns Assessment Noted Time PHQ-9 Depression Total Score: 0 08/31/19 22 9:03 AM ASSISTANT INVENTORY MANAGER documented as of this encounter Care Teams Door And Arrival Attendant Relationship Specialty Start Date End Date Zhen Farah II, MD [address] [place], [place] [phone] PCP - General FAMILY PRACTICE 04/18/22 documented as of this encounter
--- OUTSIDE RECORDS SUMMARY | 2025-05-09 20:26 | XMS_ITS | Encounter Summary ---
Author Organization [facility] Address [address] [place] [address] Care Team Providers Care Reporting Developer Name Role Phone Gagan NASSAR MD, Zhen Bird Primary Care Provider Encounter Details Date Type Department Care Team (Late st Contact Info) Description 05/06/2025 Results Follow-Up [facility] Family Medicine - [address] [address] Zhen Farah II, MD [address] [place] [address] PROTIME/INR, FINGERSTICK Social History Tobacco Use Types Packs/Day Years [...] place to sleep or slept in a alf (including now)? No 08/22/2022 Sex and Gender Information Value Date Recorded Sex Assigned at Male 08/21/2024 8:36 AM PICKLING OPERATOR Legal Sex Male 9:10 AM CDT Gender Identity Male 08/25/2024 7:05 AM PICKLING OPERATOR Sexual Orientation Not on file documented as of this encounter Functional Status * RETIRED Are you deaf or do you have serious difficulty hearing Answer Date of Assessment Author Status No 08/22/2022 4:56 PM PICKLING OPERATOR Activ e * RETIRED Are you blind or do you have serious difficulty seeing, even when wearing glasses? Answer Date of Assessment Author Status No 08/22/2022 4:56 PM PICKLING OPERATOR Activ e * Do you have serious difficulty walking or climbing stairs? Answer Date of Assessment Author Status No 08/22/2022 4:56 PM PICKLING OPERATOR Mona Harris R N Active * Do you have difficulty dressing or bathing? Answer Date of Assessment Author Status No 08/22/2022 4:56 PM PICKLING OPERATOR Mona Harris R N Active * Because of a physical, mental, or emotional condition, do you have difficulty doing errands alone such as visiting a doctor's office or shopping? Answer Date of Assessment Author Status No 08/22/2022 4:56 PM PICKLING OPERATOR Mona Harris R N Active documented as of this encounter Mental Status * Because of a physical, mental, or emotional condition, do you have serious difficulty concentrating, remembering, or making decisions? Answer Entry Date Author Status No 08/22/2022 4:56 PM PICKLING OPERATOR Mona Harris R N Active documented in this encounter Plan of Treatment Upcoming Encounters Date Type Department Care Team (Late st Contact Info) Description 07/14/2025 8:10 AM PICKLING OPERATOR Office Visit [facility] Family Medicine - [place] [address] [place] [address] Zhen Farah II, MD [address] [place], [place] [phone] documented as of this encounter Goals Goal Patient Goal Type Associated Problems Recent Progress Patient-Stated? Author Health - patient able to perform ADLs independently Lifestyle Berta Archer RN documented as of this encounter Visit Diagnoses Not on filedocumented in this encounter Additional Health Concerns Assessment Noted Time PHQ-9 Depression Total Score: 0 07/21/19 25 7:12 AM PICKLING OPERATOR documented as of this encounter Care Teams Reporting Developer Relationship Specialty Start Date End Date Zhen Farah II, MD [address] [place] [address] PCP - General FAMILY PRACTICE 04/18/22 documented as of this encounter
--- OUTSIDE RECORDS SUMMARY | 2025-05-09 20:26 | XMS_ITS | Clinical Summary ---
Author Organization [facility] Address [facility] [place] [address] Care Team Providers Care Ip Counsel Name Role Phone Gagan NASSAR MD, Zhen Bird Primary Care Provider Allergies Active Allergy Reactions Criticality Noted Date Comments Levofloxacin Rash,Hives High 01/29/2009 Hives Penicillins Unknown,Other (see comment) High 10/22/2008 As of child unsure of reaction As of child unsure of reaction Hives Medications Spacer/Aero-Holdin g Chambers DeviceIndications: Bronchitis Use as directed to inhale albuterol. 1 each 1 3 Active ketoconazole (NIZORAL) 2 % cream 3 Active atorvastatin (LIPITOR) 20 MG tabletIndications: Mixed hyperlipidemia Take 1 tablet (20 mg total) by mouth every morning. 90 tablet 3 4 Active buPROPion XL (WELLBUTRIN XL) 300 MG 24 hr tabletIndications: Anxiety disorder due to known physiological condition Take 1 tablet (300 mg total) by mouth daily. 90 tablet 3 4 Active traZODone (DESYREL) 50 MG tabletIndications: Primary insomnia Take 1 tablet (50 mg total) by mouth nightly as needed for Sleep. 30 tablet 5 4 Active allopurinol (ZYLOPRIM) 300 MG tabletIndications: Hyperuricemia Take 1 tablet (300 mg total) by mouth daily. 90 tablet 3 4 Active traMADol (ULTRAM) 50 MG tabletIndications: Chronic Pain Take 1 tablet (50 mg total) by mouth every 6 (six) hours as needed. Indications: Chronic Pain 120 tablet 4 Active albuterol sulfate HFA 108 (90 Base) MCG/ACT inhalerIndications :Wheezing Inhale 2 puffs into the lungs every 6 (six) hours as needed for Wheezing. 18 g 1 5 Active pantoprazole EC (PROTONIX) 40 MG tabletIndications: Gastroesophageal reflux disease, unspecified whether esophagitis present Take 1 tablet (40 mg total) by mouth daily. 90 tablet 3 5 Active warfarin (COUMADIN) 2 MG tabletIndications: Current use of shelter anticoagulation,PE (pulmonary thromboembolism) ([facility]/HCC [facility]) Take 2 tablets by mouth every day but Sunday and Sunday. Take 3 tablets by mouth Sunday and Sunday. 200 tablet 3 5 Active levothyroxine (SYNTHROID) 150 MCG tabletIndications: Acquired hypothyroidism TAKE 1 TABLET(150 MCG) BY MOUTH EVERY MORNING 90 tablet 3 5 Active predniSONE (DELTASONE) 10 mg tabletIndications: Achilles tendinitis of right lower extremity Take 1 tablet (10 mg total) by mouth daily for 14 days. 14 tablet 5 025 Active ARIPiprazole (ABILIFY) 5 MG tablet Take 1 tablet (5 mg total) by mouth daily. 5 025 Discontin ued(Side effects) propranolol (INDERAL) 10 MG tablet 5 025 Discontin ued(Formu temo change) Active Problems Problem Noted Date Diagnosed Date Bipolar 1 disorder 07/21/2024 Acute deep vein thrombosis (DVT) of lower extrem ity 06/04/2023 Dyslipidemia 04/12/2023 Lymphadenopathy, inguinal 03/22/2023 Mediastinal lymphadenopathy 03/09/2023 Acute deep vein thrombosis (DVT) of left peronea l vein 03/09/2023 Vitamin D deficiency 12/21/2022 LLQ abdominal pain 10/13/2022 Overview (10/13/2022): Added automatically from request for surgery [id number] BRBPR (bright red blood per rectum) 10/13/2022 Overview (10/13/2022): Added automatically from request for surgery [id number] Heartburn 10/13/2022 Overview (10/13/2022): Added automatically from request for surgery [id number] Current use of long term care pharmacist anticoagulation 023 Class 1 obesity due to exces s calories with serious comorbidity and body mass index (BMI) of 33.0 to 33.9 in adult 08/31/2022 PE (pulmonary thromboembolism) 08/22/2022 Hypothyroidism (acquired) 05/27/2021 History of DVT (deep vein thrombosis) 05/27/2021 Mixed hyperlipidemia 05/11/2021 Post traumatic stress disorder (PTSD) 05/11/2021 Primary insomnia 05/11/2021 Neck pain, chronic 05/11/2021 Chronic deep vein thrombosis (DVT) of proximal vein of right lower extremity 05/11/2021 Left elbow pain 09/11/2019 Arm swelling 09/02/2019 Chronic left shoulder pain 07/29/2019 Chronic deep vein thrombosis (DVT) of brachial vein of right upper extremity 03/25/2019 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 Muscle pain 01/18/2017 Acute embolism and thrombosi s of unspecified deep veins of unspecified lower extremity 09/19/2016 Pain in right shoulder 09/19/2016 Attention and concentration deficit 07/27/2015 Insomnia, unspecified 07/27/2015 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 04/22/2015 Mixed hyperlipidemia 04/22/2015 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 04/08/2015 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 04/08/2015 Malignant melanoma of back 03/30/2015 Recurrent deep vein thrombosis 03/30/2015 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 03/30/2015 Anxiety state 03/10/2015 Obstructive sleep apnea 03/10/2015 Personal history of malignant melanoma of skin 1 Attention deficit hyperactivity disorder (ADHD) 08/13/2013 Overview (06/06/2021): Overview: CRYSTAL N SUYAPA ASST CRYSTAL N SUYAPA ASST Peripheral opacity of cornea 02/15/2010 Pure hypercholesterolemia 07/06/2009 Other and unspecified hyperlipidemia 07/06/2009 Overweight 06/08/2009 Condyloma acuminatum 02/03/2009 Family history of early CAD 10/22/2008 Hypothyroidism 10/22/2008 Resolved Problems Problem Noted Date Diagnosed Date Resolved Date Health examination of defined subpopulation 06/08/2009 06/13/2021 Encounters Date Type Department Care Team Description 05/06/2025 9:10 AM CDT Office Visit [address] [phone] Zhen Farah II, MD Foot Pain (Patient presents for right foot/achilles tendon pain) 05/06/2025 Results Follow-Up [address] [phone] Zhen Farah II, MD PROTIME/INR, FINGERSTICK 05/06/2025 Travel 03/12/2025 Scan [facility] Scanned, [facility] 03/05/[address] [phone] Zhen Farah II, MD Referral from Last 3 Months Immunizations Immunization Administration Dates Next Due Hepatitis A (Havrix [address]) 03/09/2002,2000 Hepatitis B (Generic: Adult) 09/11/2008,01/16/20 08,10/15/2007 Influenza (Generic) 04/27/2016, 5,04/23/2014,05/09/2013,1 07/26/2009,06/11/2009,04/22/2008,10/15/2007,,05/09/2002 Influenza Adult (Generic) 04/15/2013 MMR (MMRII) 06/22/2014,01/07/2000 Meningococcal (Menactra) 06/22/2014 Meningococcal (Menomune) 01/07/2000 Polio Opv (Generic) 01/07/2000 Td (TDVAX) 07/09/2007,01/07/2000 Tdap (Generic) 11/06/2016,01/24/2010 Typhoid (Typhim ) 07/09/2000 Yellow Fever (YF- Vax) 07/09/2000 Family History Medical History Relation Comments Thyroid Disease Daughter Hyperlipidemia Father Diabetes Maternal Aunt Diabetes Maternal Grandmother Diabetes Maternal Uncle Hypertension Mother Thyroid Disease Paternal Grandmother Relation Status Comments Daughter Father Alive Maternal Aunt Maternal Grandmother Maternal Uncle Mother Alive Paternal Grandmother Social History Tobacco Use Types Packs/Day Years Used Date Smoking Tobacco: Never Smokeless Tobacco: Never Tobacco Cessation:Counseling Given: No Comments:na Alcohol Use Standard Drinks/Week Comments Yes [...] place to sleep or slept in a m[facility]p (including now)? No 08/22/2022 Sex and Gender Information Value Date Recorded Sex Assigned at Male 08/21/2024 8:36 AM PRECISION MILLWRIGHT Legal Sex Male 9:10 AM CDT Gender Identity Male 08/25/2024 7:05 AM PRECISION MILLWRIGHT Sexual Orientation Not on file Last Filed Vital Signs Vital Sign Reading Time Taken Comments Blood Pressure 138/89 05/06/2025 9:04 AM CDT Pulse 86 05/06/2025 9:04 AM CDT Temperature 36.7 C (98 F) 05/06/2025 9:04 AM CDT Respiratory Rate 16 08/12/2024 7:08 AM PRECISION MILLWRIGHT Oxygen Saturation 96% 05/06/2025 9:04 AM CDT Inhaled Oxygen Concentration - - Weight 112.9 kg (249 lb) 05/06/2025 9:04 AM CDT Height 175.3 cm (5' 9) 08/25/2024 7:02 AM PRECISION MILLWRIGHT Body Mass Index 36.77 08/25/2024 7:02 AM PRECISION MILLWRIGHT Plan of Treatment Upcoming Encounters Date Type Department Care Team (Late st Contact Info) Description 07/14/2025 8:10 AM PRECISION MILLWRIGHT Office Visit [facility] Family Medicine - [place] [address] [place] [phone] Zhen Farah II, MD [address] [place], [place] [phone] Health Maintenance Due Date Last Done Comments Annual Physical 1983 Hepatitis C 1998 HPV Vaccines (1 - 3-dose SCDM series) 2007 COVID-19 Vaccine ( season) 2025 Influenza Adult (#1) 2025 05/08/2018, 04/27/2016, 04/09/2015, Additional history exists DTaP, Tdap and Td Vaccines (3 - Td or Tdap) 11/06/2026 11/06/2016, 01/24/2010, 07/09/2007, Additional history exists Hepatitis A Vaccines Aged Out 03/09/2002, 07/09/19 01 No longer eligible based on patient's age to complete this topic Hepatitis B Vaccines Completed 09/11/2008, 01/16/2008, 10/15/2007 Meningococcal Vaccine Aged Out 06/22/2014, 000 No longer eligible based on patient's age to complete this topic EGD-Acharya's Surveillance Discontinued 10/26/2022 PHQ-2 (Physician [place]) Completed 07/21/2024 Meningococcal B Vaccine Aged Out No l onger eligible based on patient's age to complete this topic Pneumococcal Vaccine: Pediatrics (0 to 5 Years) and At-Risk Patients (6 to 49 Years) Aged Out No longer eligible based on patient's age to complete this topic RSV Immunizations Under 20 Months Aged Out No longer eligible based on patient's age to complete this topic Goals Goal Patient Goal Type Associated Problems Recent Progress Patient-Stated? Author Health - patient able to perform ADLs independently Lifestyle No Berta Dorsey, RN Medical Devices Implanted Type Area Type Casting Machine Operator Device Identifier Shelf Expiration Date Model / Serial / Lot Mesh Surgical Progrip [id number] Self Fixate Monofilament Health Spa Manager Polyactic Acid Collagen Polyester Laparoscopic Inguinal Repair - [id number] Implanted:Qty: 1 on 02/03/2022 by Sonido Moon MD at [facility] Mesh Left: Inguinal [employer] [id number] 04/07/2024 [id number] / / [id number] Procedures Procedure Name Priority Date/Time Associated Diagnosis Comments COLLECT.CAPILLARY (FNGR,HEEL,EAR) Routine 05/06/2025 4:52 PM CDT Chronic deep vein thrombosis (DVT) of proximal vein of right lower extremity (CMS/HCC HHS/HCC) Current use of shelter anticoagulation PROTHROMBIN TIME, FINGERSTICK Routine 05/06/2025 Chronic deep vein thrombosis (DVT) of proximal vein of right lower extremity (CMS/HCC HHS/HCC) Current use of shelter anticoagulation EGD Routine 10/26/2022 9:56 AM CDT from Last 3 Months or Most Recently Relevant to Health Maintenance Results * PROTIME/INR, FINGERSTICK (05/06/2025) INR WHOLE BLOOD 2.[address] [facility] 05/06/2025 us Zhen Farah II, MD LABORATORY Final R esult [facility] [address] [place] [address], [place] [phone] from Last 3 Months Insurance [facility] Advance Directives * Full Code (Latest Code Status on File) Date Activated Date Inactivated Comments 08/22/2022 3:37 PM 08/24/2022 1:37 PM Care Teams Ip Counsel Relationship Specialty Start Date End Date Zhen Farah II, MD [address] [place] [id number] PCP - General FAMILY PRACTICE 04/18/22
--- OUTSIDE RECORDS SUMMARY | 2025-05-09 20:26 | XMS_ITS | Clinical Summary ---
Author Organization [facility] Address [address] [place] [address] Care Team Providers Care Mold Maintenance Technician Name Role Phone Gagan NASSAR MD, Zhen Lees Primary Care Provid er Allergies Active Allergy Reactions Criticality Noted Date Comments Levofloxacin Hives,Rash High 01/29/2009 Hives Other Hives High 01/23/2014 Penicillins Hives,Unknown High 10/22/2008 As of child unsure of reaction Hives Medications atorvastatin (LIPITOR) 20 mg tablet 11/06/[address] (CYMBALTA) 60 mg capsule 01/14/2019 Active traZODone (DESYREL) 50 mg tablet 01/14/2019 Active XARELTO 20 mg tablet 04/06/2019 Active buPROPion XL (WELLBUTRIN XL) 150 mg 24 hr tablet 04/28/2019 Active Synthroid 175 mcg tablet 12/14/2020 Active albuterol HFA (PROVENTIL HFA,VENTOLIN HFA,PROAIR HFA) 90 mcg/actuation inhaler INHALE 2 PUFFS INTO THE LUNGS EVERY 6 HOURS NEEDED FOR WHEEZING 08/17/2022 Active ketoconazole (NIZORAL) 2 % cream APPLY TO THE AFFECTED AREA ON BACK TWICE DAILY FOR 2 WEEKS 11/21/[address] (PROTONIX) 40 mg EC tablet Take 1 tablet (40 mg total) by mouth 10/26/2022 Active warfarin (COUMADIN) 2 mg tablet 09/15/2022 Active Active Problems Problem Noted Date Diagnosed [...] (04/12/2023): Added automatically from request for surgery [id number] Heartburn 10/13/2022 Overview (04/12/2023): Added automatically from request for surgery [id number] BRBPR (bright red blood per rectum) 10/13/2022 Overview (04/12/2023): Added automatically from request for surgery [id number] Hypothyroidism (acquired) 05/27/2021 Post traumatic stress disorder [...] hyperactivity disorder (ADHD) 08/13/2013 Overview (04/14/2019): TAURUS CONSTANTINO Attention deficit hyperactivity disorder (ADHD) 08/13/2013 Overview (04/12/2023): Overview: TAURUS CONSTANTINO TA[facility] CONSTANTINO Peripheral opacity of cornea 02/15/2010 Other and unspecified hyperlipidemia 07/06/2009 Pure hypercholesterolemia 07/06/2009 Health examination of defined subpopulation 07/2008 Overweight 06/08/2009 Condyloma acuminatum 02/03/2009 Family history of early CAD 10/22/2008 Hypothyroidism 10/22/2008 Resolved Problems Problem Noted Date Diagnosed Date Resolved Date Pain in right shoulder 09/19/201606/19 Encounters Date Type Department Care Team Description 02/27/2025 3:30 PM CDT Office Visit [facility] Medicine Surgery [address] [facility] Floor [address] [place] [address] Teresa Bone MD Multinodular goiter (Primary Dx) from Last 3 Months Immunizations Immunization Administration Dates Next Due H1N1 Inj Preservative Free 08/03/2009 Hep A, Adult 03/09/2002,07/09/2000 Hep B Vaccine 09/11/2008,01/16/2008,10/15/2007 Influenza LAIV (Nasal) 04/22/2008 Influenza, Quadrivalent, Spl it, Preservative Free, Intramuscular 05/08/2018,04/15/2013 Influenza, Split 10/15/2007,10/12/2006, 2 Influenza, Trivalent, IM (MDV) 4,05/09/2013,05/26/2010,06/11 Influenza, Trivalent, Preser vative Free, Intramuscular 04/27/2016,04/09/2015,04/15/2013 Influenza, Unspecified 04/27/2016,2014,04/23/2014,05/09,04/15/2013,05/26/2010,06/11/2009 ,04/22/2008,10/15/2007,10/12/2006,1107/2001 MMR 06/22/2014,01/07/2000 Meningococcal MCV4P (Menactra) 06/22/2014 Meningococcal Polysaccharide (Menomune) 01/07/2000 OPV 01/07/2000 Td, adsorbed 07/09/2007,01/07/2000 Tdap 11/06/2016,01/24/2010 Typhoid Inactivated 07/09/2000 Varicella 10/15/2007 Yellow Fever 07/09/2000 Surgical History Surgery Date Site/Laterality Comments UVULECTOMY 07/09/2003 - 07/08/2004 SHOULDER SURGERY Right DORSAL COMPARTMENT RELEASE Bilateral SHOULDER ARTHROSCOPY 12/17/2018 Left Medical History Medical History Date Comments Thyroid activity decreased 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 Foraminal stenosis of cervical region Hypercholesteremia Bleeding disorder Peripheral neuropathy Sleep apnea Family History Medical History Relation Name Comments Heart disease Father Hyperlipidemia Mother Relation Name Status Comments Father Mother Social History Tobacco Use Types Packs/Day Years Used Date Smoking Tobacco: Never Smokeless Tobacco: Never Tobacco Cessation:Counseling Given: Not Answered Alcohol Use Standard Drinks/Week Comments Yes 0 (1 standard drink = 0.6 oz pur e alcohol) Personal Safety Answer Date Recorded Have you ever been in or are you currently in a harmful physical or emotional relationship or is someone making you feel afraid or unsafe? Denies 05/23/2023 Sex and Gender Information Value Date Recorded Sex Assigned at Not on file Legal Sex Male 12:16 PM CDT Gender Identity Not on file Sexual Orientation Not on file Occupation Industry Job Start Date Job End Date [employer] Not on file Not on file Not on file Obstetrics History Last Filed Vital Signs Vital Sign Reading Time Taken Comments Blood Pressure 129/89 02/27/2025 3:15 PM CDT Pulse 88 02/27/2025 3:15 PM CDT Temperature 36.7 C (98.1 F) 02/27/2025 3:15 PM CDT Respiratory Rate 17 02/27/2025 3:15 PM CDT Oxygen Saturation 99% 02/27/2025 3:15 PM CDT Inhaled Oxygen Concentration - - Weight 115.5 kg (254 lb 9.6 oz) 02/27/2025 3:15 PM CDT Height 175.3 cm (5' 9.02) 02/27/2025 3:15 PM CD T Body Mass Index 37.58 02/27/2025 3:15 PM CDT Plan of Treatment Health Maintenance Due Date Last Done Comments Depression Screening 1980 Hepatitis C Screening 1980 Regular Well Visit/Exam 18-64 1998 Pneumococcal vaccine <65 (1 of 2 - PCV) 1999 HPV Vaccines (1 - 3-dose SCD M series) 2007 Zoster Vaccine (1 of 2) 12/10/2007 Varicella Vaccines (2 of 2 - 13+ 2-dose series) 07/20/2014 10/15/2007 Influenza Vaccine (#1) 2025 8, 04/27/2016, 04/27/2016, Additional history exists DTaP/Tdap/Td Vaccine (3 - Td or Tdap) 11/06/2026 11/06/2016, 01/24/2010, 07/09/2007, Additional history exists Hepatitis B Screening Completed 09/11/2008 , 01/16/2008, 10/15/2007 [place] [address] [facility] Advance Directives For more information, please contact: [phone] * Full Code (Latest Code Status on File) Date Activated Date Inactivated Comments 05/23/2023 7:27 AM 05/24/2023 5:33 AM Care Teams Mold Maintenance Technician Relationship Specialty Start Date End Date Zhen Farah II, MD [address] [place] [phone] PCP - General Family Practice 05/10/23
--- OUTSIDE RECORDS SUMMARY | 2025-05-09 20:26 | XMS_ITS | Encounter Summary ---
Author Organization [facility] Address [address] [place] [id number] Care Team Providers Care Screener Perfumer Name Role Phone Taz Vasquez MD Primary Care Provider Edilson Farah II, MD, Zhen Bird Primary Care Provider Encounter Details Date Type Department Care Team (Late st Contact Info) Description 02/03/2022 Prep for Procedure [facility] Pre-Admission Testing [address] [place], [place] [phone] Sonido Moon MD [address] [place] [phone] Social History Tobacco Use Types Packs/Day Years Used Date Smoking Tobacco: Never Smokeless Tobacco: Never Alcohol Use Standard Drinks/Week Comments Yes 0 (1 standard drink = 0.6 oz pur e alcohol) rare PHQ-2 Answer Date Recorded PHQ-2 Score - If the patient scores above 3, please move on to questions 3-9 0 08/31/2021 Sex and Gender Information Value Date Recorded Sex Assigned at Male 08/21/2024 8:36 AM PORT PATROL OFFICER Legal Sex Male 9:10 AM CDT Gender Identity Male 08/25/2024 7:05 AM PORT PATROL OFFICER Sexual Orientation Not on file COVID-19 Exposure Response Date Recorded In the last 10 days, have yo u been in contact with someone who was confirmed or suspected to have Coronavirus/COVID-19? No / Unsure 02/03/2022 6:19 AM CDT documented as of this encounter Functional Status * Calculated C-SSRS Risk Score (Lifetime/Recent) Answer Date of Assessment Author Status No Risk Indicated 02/03/2022 7:59 AM CDT Amina Jean RN Active * [place] Suicide Severity Rating Scale (Screener/Recent Self-Report) Question Answer Date of Assessment Author Status 1. Wish to be (Past 1 Month) No 02/03/2022 7:59 AM CDT Gordy Jean, RN Act carlene 2. Non-Specific Active Suicidal Thoughts (Past 1 Month) No 02/03/2022 7:59 AM CDT Gordy Jean, RN Act carlene 6. Suicidal Behavior (Lifetime) No 02/03/2022 7:59 AM CDT Gordy Jean, RN Act carlene documented as of this encounter Plan of Treatment Upcoming Encounters Date Type Department Care Team (Late st Contact Info) Description 07/14/2025 8:10 AM PORT PATROL OFFICER Office Visit [facility] Family Medicine [address] [phone] Zhen Farah II, MD [address] [place] [address] documented as of this encounter Results * CORONAVIRUS (COVID 19) (01/31/2022 9:11 AM CDT) SPEC DESCRIPTION NASAL 02/01/20 10:50 AM CDT [facility] CORONAVIRUS SARS COV 2 PCR (RESP) NEGATIVE NEGATIVE 01/31/2022 9:00 PM CDT [facility] Comment: THE SARS-CoV-2 TEST HAS BEEN AUTHORIZED BY THE FDA UNDER AN EUA FOR USE BY AUTHORIZED LABORATORIES. PERFORMED BY NUCLEIC ACID AMPLIFICATION PCR FIRST TEST NO 01/31/2022 10:50 AM CDT [facility] EMPLOYED IN HEALTHCARE NO 01/31/2022 10:50 AM CDT [facility] SYMPTOMATIC DEFINED BY CDC NO 01/31/2022 10:50 AM CDT [facility] HOSPITALIZATION STATUS NO 01/31/2022 10:50 AM CDT [facility] PATIENT IN ICU NO 01/31/2022 10:50 AM CDT [facility] 01/31/2022 10:50 AM CDT [facility] NASAL STRUCTURE / Unknown 01/31/2022 9:11 AM CDT Sonido Moon MD MICROBIOLOGY - GENERAL OR DERABLES Final Result [facility] [address] [place] [address], [place] [phone] [facility] [address] [place] [address], [place] [phone] documented in this encounter Visit Diagnoses Diagnosis Left inguinal hernia- Primary Inguinal hernia without mention of obstruction or gangrene, unilateral or unspecified, (not specified as recurrent) Preoperative testing Preoperative examination, unspecified documented in this encounter Additional Health Concerns Infection Onset Date Last Indicated Resolved Time COVID-19 Rule Out 08/22/2022 08/22/2022 08/22/2022 5:14 PM PORT PATROL OFFICER Assessment Noted Time PHQ-9 Depression Total Score: 0 08/31/19 9:03 AM PORT PATROL OFFICER documented as of this encounter Care Teams Screener Perfumer Relationship Specialty Start Date End Date Taz Vasquez MD PCP - General FAMILY PRACTICE 05/11/21 04/17/22 Zhen Farah II, MD [address] [place] [address] PCP - General FAMILY PRACTICE 04/18/22 documented as of this encounter
--- OUTSIDE RECORDS SUMMARY | 2025-05-09 20:26 | XMS_ITS | Encounter Summary ---
Author Organization [facility] Address [address] [place] [id number] Care Team Providers Care Dedicated Regional Driver Name Role Phone Gagan NASSAR MD, Zhen Bird Primary Care Provider Encounter Details Date Type Department Care Team (Late st Contact Info) Description 04/02/2023 OpenPeak Message Enc [facility] Family Medicine - [place] [address] Zhen Farah II, MD [address] [place] [phone] Lab papers Social History Tobacco Use Types Packs/Day [...] Sex Assigned at Male 08/21/2024 8:36 AM TOP DISTRIBUTION EXECUTIVE Legal Sex Male 9:10 AM CDT Gender Identity Male 08/25/2024 7:05 AM TOP DISTRIBUTION EXECUTIVE Sexual Orientation Not on file documented as of this encounter Functional Status * RETIRED Are you deaf or do you have serious difficulty hearing Answer Date of Assessment Author Status No 08/22/2022 4:56 PM TOP DISTRIBUTION EXECUTIVE Activ e * RETIRED Are you blind or do you have serious difficulty seeing, even when wearing glasses? Answer Date of Assessment Author Status No 08/22/2022 4:56 PM TOP DISTRIBUTION EXECUTIVE Activ e * Do you have serious difficulty walking or climbing stairs? Answer Date of Assessment Author Status No 08/22/2022 4:56 PM TOP DISTRIBUTION EXECUTIVE Mona Harris R N Active * Do you have difficulty dressing or bathing? Answer Date of Assessment Author Status No 08/22/2022 4:56 PM TOP DISTRIBUTION EXECUTIVE Mona Harris R N Active * Because of a physical, mental, or emotional condition, do you have difficulty doing errands alone such as visiting a doctor's office or shopping? Answer Date of Assessment Author Status No 08/22/2022 4:56 PM TOP DISTRIBUTION EXECUTIVE Mona Harris R N Active documented as of this encounter Mental Status * Because of a physical, mental, or emotional condition, do you have serious difficulty concentrating, remembering, or making decisions? Answer Entry Date Author Status No 08/22/2022 4:56 PM TOP DISTRIBUTION EXECUTIVE Mona Harris R N Active documented in this encounter Progress Notes * Tennille Lance MA - 04/03/2023 2:35 PM CDT Pt was here today and was given new lab orders documented in this encounter Plan of Treatment Upcoming Encounters Date Type Department Care Team (Late st Contact Info) Description 07/14/2025 8:10 AM TOP DISTRIBUTION EXECUTIVE Office Visit [facility] Family Medicine - [place] [address] [place] [phone] Zhen Farah II, MD [address] [place], [place] [phone] documented as of this encounter Goals Goal Patient Goal Type Associated Problems Recent Progress Patient-Stated? Author Health - patient able to perform ADLs independently Lifestyle Berta Archer RN documented as of this encounter Visit Diagnoses Not on filedocumented in this encounter Additional Health Concerns Assessment Noted Time PHQ-9 Depression Total Score: 0 08/31/19 9:03 AM TOP DISTRIBUTION EXECUTIVE documented as of this encounter Care Teams Dedicated Regional Driver Relationship Specialty Start Date End Date Zhen Farah II, MD [address] [place], [place] [phone] PCP - General FAMILY PRACTICE 04/18/22 documented as of this encounter
--- OUTSIDE RECORDS SUMMARY | 2025-05-09 20:27 | XMS_ITS ---
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 Past Treatment and Therapy Plans No past plan information found. Lifetime Dose Tracking * Chemical Lifetime Dose Automatic Entry Manual Entr y Effective Dose 23.4 mSv 23.4 mSv 0 mSv Total DLP 2,769 DLP 2,769 DLP 0 DLP CTDIvol Max 76.6 mGy 76.6 mGy 0 mGy CTDIvol Min 38.1 mGy 38.1 mGy 0 mGy
--- OUTSIDE RECORDS SUMMARY | 2025-05-09 20:27 | XMS_ITS | Clinical Summary ---
Author Organization [facility] Address [address] [place] [phone] Phone Care Team Providers Care Terminal System Operator Name Role Phone Kamaljit Blackburn DO Primary Care Provider [phone]- [phone] Allergies Active Allergy Reactions Criticality Noted Date Comments Levofloxacin Hives High 03/30/2015 Penicillins Hives High 03/30/2015 Medications rivaroxaban (XARELTO) 20 mg Tablet Take 20 mg by mouth daily. Active levothyroxine 200 mcg tablet Take 250 mcg by mouth daily early childhood associate. Active HYDROcodone-acet aminophen (NORCO) 5-325 mg tablet Take 1 Tablet by mouth every 6 hours as needed for Pain, Moderate. 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 03/30/2015 Social History Tobacco Use Types Packs/Day Years Used Date Smoking Tobacco: Never Alcohol Use Standard Drinks/Week Comments No 0 (1 standard drink = 0.6 oz pur e alcohol) Occasional Sex and Gender Information Value Date Recorded Sex Assigned at Not on file Legal Sex Male 3:14 AM MACHINE CLEANER Gender Identity Not on file Sexual Orientation Not on file Last Filed Vital Signs Vital Sign Reading Time Taken Comments Blood Pressure 129/83 01/18/2016 1:09 PM CDT Pulse 74 01/18/2016 1:09 PM CDT Temperature 36.1 C (97 F) 01/18/2016 1:09 PM CDT Respiratory Rate 22 01/18/2016 1:09 PM CDT Oxygen Saturation 99% 08/18/2015 2:10 PM MACHINE CLEANER Inhaled Oxygen Concentration - - Weight 102.5 kg (226 lb) 01/18/2016 1:09 PM CDT Height 175.3 cm (5' 9) 01/18/2016 1:09 PM CDT Body Mass Index 33.37 01/18/2016 1:09 PM CDT Plan of Treatment Health Maintenance Due Date Last Done Comments DTAP/TDAP/TD VACCINES (1 - Tdap) 1999 HEPATITIS B VACCINES (1 of 3 - 19+ 3-dose series) 01/1999 HPV VACCINES (1 - 3-dose SCDM series) 2007 INFLUENZA VACCINE (#1) 2025 Care Teams Terminal System Operator Relationship Specialty Start Date End Date Kamaljit Blackburn DO [address] [place] [address] PCP - General Student in an Organized Health Care Education/Training Program 08/18/15
--- OUTSIDE RECORDS SUMMARY | 2025-05-09 20:27 | XMS_ITS | Encounter Summary ---
Author Organization [facility] Address [address] [place] [id number] Care Team Providers Care Drop [place]ge Hand Name Role Phone Gagan NASSAR MD, Zhen Bird Primary Care Provider Encounter Details Date Type Department Care Team (Late st Contact Info) Description 05/16/2023 Impulsonic Message Enc [facility] Family Medicine - [place] [address] [address] Zhen Farah II, MD [address] [place] [address] INR TEST Social History Tobacco Use Types Packs/Day Years [...] Sex Assigned at Male 08/21/2024 8:36 AM INFORMATION TECHNOLOGY INSTRUCTOR Legal Sex Male 9:10 AM CDT Gender Identity Male 08/25/2024 7:05 AM INFORMATION TECHNOLOGY INSTRUCTOR Sexual Orientation Not on file documented as of this encounter Functional Status * RETIRED Are you deaf or do you have serious difficulty hearing Answer Date of Assessment Author Status No 08/22/2022 4:56 PM INFORMATION TECHNOLOGY INSTRUCTOR Activ e * RETIRED Are you blind or do you have serious difficulty seeing, even when wearing glasses? Answer Date of Assessment Author Status No 08/22/2022 4:56 PM INFORMATION TECHNOLOGY INSTRUCTOR Activ e * Do you have serious difficulty walking or climbing stairs? Answer Date of Assessment Author Status No 08/22/2022 4:56 PM INFORMATION TECHNOLOGY INSTRUCTOR Mona Harris R N Active * Do you have difficulty dressing or bathing? Answer Date of Assessment Author Status No 08/22/2022 4:56 PM INFORMATION TECHNOLOGY INSTRUCTOR Mona Harris R N Active * Because of a physical, mental, or emotional condition, do you have difficulty doing errands alone such as visiting a doctor's office or shopping? Answer Date of Assessment Author Status No 08/22/2022 4:56 PM INFORMATION TECHNOLOGY INSTRUCTOR Mona Harris R N Active documented as of this encounter Mental Status * Because of a physical, mental, or emotional condition, do you have serious difficulty concentrating, remembering, or making decisions? Answer Entry Date Author Status No 08/22/2022 4:56 PM INFORMATION TECHNOLOGY INSTRUCTOR Mona Harris RN Active documented in this encounter Plan of Treatment Upcoming Encounters Date Type Department Care Team (Late st Contact Info) Description 07/14/2025 8:10 AM INFORMATION TECHNOLOGY INSTRUCTOR Office Visit [facility] Family Medicine - [place] [address] [address] [place] [address] Zhen Farah II, MD [address] [place] [address] documented as of this encounter Goals Goal Patient Goal Type Associated Problems Recent Progress Patient-Stated? Author Health - patient able to perform ADLs independently Lifestyle Berta Archer RN documented as of this encounter Visit Diagnoses Not on filedocumented in this encounter Additional Health Concerns Assessment Noted Time PHQ-9 Depression Total Score: 0 08/31/19 22 9:03 AM INFORMATION TECHNOLOGY INSTRUCTOR documented as of this encounter Care Teams Drop [place]ge Hand Relationship Specialty Start Date End Date Zhen Farah II, MD [address] [place] [address] PCP - General FAMILY PRACTICE 04/18/22 documented as of this encounter
--- OUTSIDE RECORDS SUMMARY | 2025-05-09 20:27 | XMS_ITS | Patient Health Record ---
Author Organization [facility] Address [address] [place] [address] Care Team Providers Care Land Sales Agent Name Role Phone Zhen Farah II, MD Primary Care Provider Micaela Noel Kathleen Unavailable [phone] Sneha Bergeron Unavailable [phone] Uday Purdy Unavailable [phone] Allergies Allergen (clinical drug ingredient) Drug/Non Drug Allergy documented on EMR Reaction Allergy Type Onset Date Status Levaquin rash Drug Allergy Active Penicillin rash Drug Allergy Active Results Component Value Reference Range Notes UDT Reviewed date:07/18/2024 04:46:12 PM Interpretation: Performing Lab: Notes/Report: Amphetamine (AMP) NEG 0 - 1000 ng/ml Buprenorphine (BUP) NEG 0 - 10 ng/ml Oxazepam (BZO) NEG 0 - 300 ng/ml Cocaine (DWIGHT) NEG 0 - 300 ng/ml Methamphetamine (mAMP) NEG 0 - 300 ng/ml Methylenedioxymethamphetamine (MDMA) NEG 0 - 500 ng/ml Morphine (MOP) NEG 0 - 25 ng/ml Methadone (MTD) NEG 0 - 300 ng/ml Oxycodone (OXY) NEG 0 - 300 ng/ml THC NEG 0 - 50 ng/ml x NEG 0 - 1000 ng/ml x NEG 0 - 1000 ng/ml x NEG 0 - 300 ng/ml x NEG 0 - 300 ng/ml x NEG 0 - 300 ng/ml UDT Reviewed date:08/11/2024 08:17:18 PM Interpretation: Performing Lab: Notes/Report: Amphetamine (AMP) N 0 - 1000 ng/ml Buprenorphine (BUP) N 0 - 10 ng/ml Oxazepam (BZO) N 0 - 300 ng/ml Cocaine (DWIGHT) N 0 - 300 ng/ml Methamphetamine (mAMP) N 0 - 300 ng/ml Methylenedioxymethamphetamine (MDMA) N 0 - 500 ng/ml Morphine (MOP) N 0 - 25 ng/ml Methadone (MTD) N 0 - 300 ng/ml Oxycodone (OXY) N 0 - 300 ng/ml THC N 0 - 50 ng/ml x N 0 - 1000 ng/ml x N 0 - 1000 ng/ml x N 0 - 300 ng/ml x N 0 - 300 ng/ml x N 0 - 300 ng/ml Reason For Referral No Information Medications Medication SIG (Take, Route, Frequency, Duration) Notes Start Date End Date Status traZODone HCl 50 MG Tablet Oral; Duration: 30 Days Active Albuterol Sulfate HFA 108 (90 Base) MCG/ACT Aerosol Solution INHALE 2 PUFFS INTO THE LUNGS EVERY 6 HOURS NEEDED WHEEZING Inhalation; Duration: 50 Days Active buPROPion HCl ER (XL) 300 MG Tablet Extended Release 24 Hour Oral; Duration: 90 Days Active Propranolol HCl 10 MG Tablet 1 tablet on an empty stomach Orally twice a day As needed Active Propranolol HCl 10 MG Tablet 1 tablet Orally twice a day; Duration: 90 days 08/18/2024 Active Pantoprazole Sodium 40 MG Tablet Delayed Release Oral; Duration: 90 Days Active ARIPiprazole 5 MG Tablet 1 tablet Orally Once a day; Duration: 30 days 07/18/2024 Active Warfarin Sodium 2 MG Tablet Oral; Duration: 86 Days warfarin (4 mg Sunday-Sunday, 6 mg Sunday) Active Levothyroxine Sodium 175 MCG Tablet Oral; Duration: 90 Days Active Atorvastatin Calcium 20 MG Tablet Oral; Duration: 90 Days Active Social History Tobacco Use: Social History Observation Description Date Details (start date - stop date) Never Smoker NA - NA Sex Assigned At : Social History Observation Description Sex Assigned At Male Social History Miscellaneous: Social Info Question Answer Notes Advance Care Planning Are you your own decision-maker Yes Do you have Power of Analytics Director for Health or [facility]? No Safety issues: Are there any firearms in the house? Ye s Social History Social Info Question Answer Notes Household: Marital Status: Number of Adults in household: 1 Number of Children in Household: 1 Level of Education: Not Finished College Drug/Alcohol: Social Info Question Answer Notes Drugs Have you used drugs other than those for medical reasons in the past 12 months? No AUDIT-C (Standard) Did you have a drink containing alcohol in the past year? Yes How often did you have six or more drinks on one occasion in the past year? Never (0 point) How many drinks did you have on a typical day when you were drinking in the past year? 3 or 4 drinks (1 point) How often did you have a drink containing alcohol in the past year? Monthly or less (1 point) Points 2 Interpretation Negative Tobacco Use: Social Info Question Answer Notes Tobacco Control (Standard) Tobacco use: Nonsmoker Additional Details Category Social Info Options Details Miscellaneous: Occupation: Retired Drug/Alcohol: Do you smoke marijuana? Den ies Do you drink alcohol? Occasional ly Problems Problem Type SNOMED Code ICD Code Onset Dates Problem Status W/U Status Risk Notes Problem Depressed bipolar I disorder in remission (95341941) Bipolar disorder, in partial remission, most recent episode depressed (F31.75) Active confirmed Problem Posttraumatic stress disorder (43603359) PTSD (post-traumatic stress disorder) (F43.10) Active confirmed Problem Unable to concentrate (finding) (39648355) Difficulty concentrating (R41.840) Active confirmed Problem Bipolar disorder (91625540) Bipolar affective disorder, remission status unspecified (F31.9) Active confirmed Vital Signs Heart Rate 88 /min 08/18/2024 Blood pressure diastolic 83 mm Hg 07/18/2024 Weight-kg 111.22 kg 07/18/2024 Blood pressure systolic 133 mm Hg 07/18/2024 Weight 245.2 lbs 07/18/2024 Encounters Encounter Location Date Provider Diagnosis [facility] [address] [facility] [address] [place] [address] 07/18/2024 Noel Clubb Difficulty concentrating R41.840 and Bipolar affective disorder, remission status unspecified F31.9 [facility] [address] [place] [address] 08/11/2024 Uday Purdy Lack of concentratio n R41.840 [facility] [address] [place] [address] 08/18/2024 Noel Clubb PTSD (post-traumatic stress disorder) F43.10 and Bipolar disorder, in partial remission, most recent episode depressed F31.75 [facility] [address] [place] [address] 09/16/2024 Sneha Bergeron Assessments Encounter Date Diagnosis (ICD Code) Assessment Notes Treatment Notes Treatment Clinical Notes Section Notes 07/18/2024 Difficulty concentrating (ICD-10 - R41.840) 1. Bipolar Affective Disorder - Plan: Start aripiprazole (Abilify) at 5 MG HS. Monitor for side effects, including potential weight gain, and adjust the dose accordingly. Follow up in one month to assess the effectiveness of aripiprazole, discuss any side effects or concerns, and evaluate the impact on impulsive behaviors such as excessive talking to women and spending sprees. 2. Post-Traumatic Stress Disorder (PTSD) - Plan: Continue current treatment plan. Encourage the patient to seek therapy with [facility] and schedule regular sessions for ongoing support, addressing both PTSD and impulsive behaviors. 3. Insomnia - Plan: Continue trazodone 50 mg, with the option to increase to 100 mg if needed. Reevaluate the effectiveness of trazodone during the follow-up visit. If not effective, consider quetiapine as an alternative, keeping in mind the patient's concerns about weight gain. 4. Attention Deficit Hyperactivity Disorder (ADHD) - Plan: Complete the scheduled ADHD test to determine the presence and severity of ADHD symptoms. Discuss the results during the follow-up visit and consider alternative treatment options if necessary, keeping in mind the patient's sleep issues and history of ineffective Adderall use. 5. Medication Management - Plan: Monitor for potential weight gain with aripiprazole. If weight gain occurs, discuss options such as metformin. Ensure the patient has refills for trazodone and other current medications. 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 6. Psychotherapy - Plan: Encourage the patient to establish regular therapy sessions with [facility]. Provide information on walk-in appointments and scheduling future sessions. 7. Follow-up - Plan: Schedule a follow-up appointment in one month to assess the patient's progress, discuss any concerns, and adjust the treatment plan as needed, with a focus on managing impulsive behaviors and monitoring for medication side effects. 07/18/2024 Bipolar affective disorder, remission status unspecified (ICD-10 - F31.9) 1. Bipolar Affective Disorder - Plan: Start aripiprazole (Abilify) at 5 MG HS. Monitor for side effects, including potential weight gain, and adjust the dose accordingly. Follow up in one month to assess the effectiveness of aripiprazole, discuss any side effects or concerns, and evaluate the impact on impulsive behaviors such as excessive talking to women and spending sprees. 2. Post-Traumatic Stress Disorder (PTSD) - Plan: Continue current treatment plan. Encourage the patient to seek therapy with [facility] and schedule regular sessions for ongoing support, addressing both PTSD and impulsive behaviors. 3. Insomnia - Plan: Continue trazodone 50 mg, with the option to increase to 100 mg if needed. Reevaluate the effectiveness of trazodone during the follow-up visit. If not effective, consider quetiapine as an alternative, keeping in mind the patient's concerns about weight gain. 4. Attention Deficit Hyperactivity Disorder (ADHD) - Plan: Complete the scheduled ADHD test to determine the presence and severity of ADHD symptoms. Discuss the results during the follow-up visit and consider alternative treatment options if necessary, keeping in mind the patient's sleep issues and history of ineffective Adderall use. 5. Medication Management - Plan: Monitor for potential weight gain with aripiprazole. If weight gain occurs, discuss options such as metformin. Ensure the patient has refills for trazodone and other current medications. 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 6. Psychotherapy - Plan: Encourage the patient to establish regular therapy sessions with [facility]. Provide information on walk-in appointments and scheduling future sessions. 7. Follow-up - Plan: Schedule a follow-up appointment in one month to assess the patient's progress, discuss any concerns, and adjust the treatment plan as needed, with a focus on managing impulsive behaviors and monitoring for medication side effects. 08/11/2024 Lack of concentration (ICD-10 - R41.840) Clinical Interpretation: ADHD Probability AnalysisKey Findings:Outsid e Typical Range Score: 1 Indicates at least one cognitive marker is outside the typical range.Response Inhibition Errors: 17 High error count suggests impulsivity or difficulty suppressing automatic responses.Impai rment in response inhibition is common in ADHD, but also seen in stress, anxiety, sleep deprivation, and other conditions affecting executive function.Part A Score (ASRS): 4 A score of 4 or more in Part A meets the ADHD screening threshold.Howev er, self-report alone is not diagnostic, and test results should align with lifelong symptoms.Does This Test Predict ADHD?Low Probability of ADHD: Inconclusive based on cognitive testing alone.While response inhibition errors are notable, ADHD requires consistent symptoms across multiple life settings (work, home, relationships). Other explanations for poor inhibition (e.g., anxiety, stress, or fatigue) should be considered.Next Steps for Clarity: Review Developmental History:ADHD must be present since childhood is there a history of school/work challenges related to focus and impulsivity?Rul e Out Other Factors:Anxiety , depression, sleep disorders, or executive dysfunction can all impact response inhibition.Clin ical Interview & Further Testing:A structured ADHD evaluation would provide additional insights.Final Opinion:Very low probability of ADHD, as you suggest.Respons e inhibition deficit alone does not confirm ADHD.Further evaluation should focus on alternative explanations (stress, mood disorders, cognitive load). 08/18/2024 Bipolar disorder, in partial remission, most recent episode depressed (ICD-10 - F31.75) 08/18/2024 PTSD (post-traumatic stress disorder) (ICD-10 - F43.10) Post-Traumatic Stress Disorder (PTSD): Care Instructions material was published 07/18/2024 Other Learning About Depression Screening material was printed Assessment and plan reviewed with patient Call for problems with medication, side effects or need for dosage change Compliance issues reviewed Discussed the risks/benefits of this medication Discussed medication side effects Return if symptoms worsen Treatment options reviewed. discussed that it can take weeks to see full therapeutic effects of psychotropic medications. discussed when to seek emergency services. discussed crisis prevention hotline 988., Aripiprazole Oral Tablet 5 mg (ARIPIPRAZOLE - ORAL) material was published 1. Bipolar Affective Disorder - Plan: Start aripiprazole (Abilify) at 5 MG HS. Monitor for side effects, including potential weight gain, and adjust the dose accordingly. Follow up in one month to assess the effectiveness of aripiprazole, discuss any side effects or concerns, and evaluate the impact on impulsive behaviors such as excessive talking to women and spending sprees. 2. Post-Traumatic Stress Disorder (PTSD) - Plan: Continue current treatment plan. Encourage the patient to seek therapy with [facility] and schedule regular sessions for ongoing support, addressing both PTSD and impulsive behaviors. 3. Insomnia - Plan: Continue trazodone 50 mg, with the option to increase to 100 mg if needed. Reevaluate the effectiveness of trazodone during the follow-up visit. If not effective, consider quetiapine as an alternative, keeping in mind the patient's concerns about weight gain. 4. Attention Deficit Hyperactivity Disorder (ADHD) - Plan: Complete the scheduled ADHD test to determine the presence and severity of ADHD symptoms. Discuss the results during the follow-up visit and consider alternative treatment options if necessary, keeping in mind the patient's sleep issues and history of ineffective Adderall use. 5. Medication Management - Plan: Monitor for potential weight gain with aripiprazole. If weight gain occurs, discuss options such as metformin. Ensure the patient has refills for trazodone and other current medications. 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 6. Psychotherapy - Plan: Encourage the patient to establish regular therapy sessions with [facility]. Provide information on walk-in appointments and scheduling future sessions. 7. Follow-up - Plan: Schedule a follow-up appointment in one month to assess the patient's progress, discuss any concerns, and adjust the treatment plan as needed, with a focus on managing impulsive behaviors and monitoring for medication side effects. 08/18/2024 Other Assessment and plan reviewed with patient Call for problems with medication, side effects or need for dosage change Compliance issues reviewed Discussed the risks/benefits of this medication Discussed medication side effects Return if symptoms worsen Treatment options reviewed. discussed that it can take weeks to see full therapeutic effects of psychotropic medications. discussed when to seek emergency services. discussed crisis prevention hotline 988., Propranolol (Cardiovascula r) material was published, Aripiprazole material was published 1. Bipolar Affective Disorder - PHQ-9 decreased from 16 (07/18/24) to 9 (08/18/24). - Patient reports improvement in irritability and energy levels with aripiprazole 5 mg. - Experiences periods of feeling high the first week of aripiprazole use. - History of gambling and spending sprees. - Plan: a. Continue aripiprazole 5 mg. b. Monitor for side effects and efficacy. c. Reassess in one month or sooner if needed. 2. ADHD - Self-report score of 4 suggests difficulty sustaining attention. - History of gambling and spending sprees. - Plan: a. Continue aripiprazole b. Reassess ADHD symptoms in one month. c. f/u in one month. 3. PTSD - Patient reports recurrent, intrusive memories, flashbacks, physical reactivity, avoidance, and hypervigilance. - Plan: a. initiate propranolol for anxiety and PTSD symptoms. b. Educate patient on importance of therapy for PTSD management. 4. Insomnia - Patient reports 4 hours of sleep per night, trazodone 50 mg ineffective. - Experiences periods of feeling well-rested on 3 hours of sleep, followed by a crash. - Plan: a. Encourage sleep hygiene practices. b. Discuss possibility of changing trazodone to quetiapine. c. Reassess sleep quality in one month. 5. Anxiety - LEEROY-7 score decreased from 15 on (07/18/24) to 5 (08/18/24). - Patient reports elevated anxiety levels. - Plan: a. Monitor anxiety levels while on aripiprazole. b. initiate propranolol for anxiety management PRN. c. Reassess in one month. D. encouraged initiation of therapy. 6. Suicidal or Self-Harm Ideation - Patient denies thoughts of suicide or self-harm. - Plan: Continue monitoring for changes in mood or suicidal ideation during follow-ups. Plan Of Treatment No Information Insurance Providers Payer Name Payer Address Payer Phone Subscriber Number Group Number Insured Name Patient Relationship to Insured Coverage Start Date Coverage End Date [facility] [address] [place] [address] [id number] GEETHA GUDINO Self - patient is the insured Medical (General) History Medical History History ICD Code Past Psychiatric History: PTSD abdominal aortic aneurysm: No atrial fibrillation: No chronic fatigue syndrome: No hyperlipidemia: Yes hypertension: No Parkinson's disease: No restless leg syndrome: No stroke: No subdural hematoma: No type 1 diabetes mellitus: No type 2 diabetes mellitus: No vitamin B12 deficiency: No vitamin D deficiency: No pulmonary embolism acid reflux dvt multiple neuropathy compartment syndrome Surgical History Surgery Date(Month/Year) bicept repair shoulder surgery x 2 hernia repair popliteal artery entrapment Hospitalization History Reason Date(Month/Year) for surgeries
--- OUTSIDE RECORDS SUMMARY | 2025-05-09 20:27 | XMS_ITS | Encounter Summary ---
Author Organization [facility] Address [address] [place] [address] Care Team Providers Care Lock Assembler Name Role Phone Gagan NASSAR MD, Zhen Bird Primary Care Provider Encounter Details Date Type Department Care Team (Late st Contact Info) Description 05/11/2023 Cort[place] Message Enc [facility] Family Medicine - [place] [address] Zhen Farah II, MD [address] [place] [phone] Flu like symptoms Social History Tobacco Use Types Packs/Day Years [...] Sex Assigned at Male 08/21/2024 8:36 AM NOZZLE OPERATOR Legal Sex Male 9:10 AM CDT Gender Identity Male 08/25/2024 7:05 AM NOZZLE OPERATOR Sexual Orientation Not on file documented as of this encounter Functional Status * RETIRED Are you deaf or do you have serious difficulty hearing Answer Date of Assessment Author Status No 08/22/2022 4:56 PM NOZZLE OPERATOR Activ e * RETIRED Are you blind or do you have serious difficulty seeing, even when wearing glasses? Answer Date of Assessment Author Status No 08/22/2022 4:56 PM NOZZLE OPERATOR Activ e * Do you have serious difficulty walking or climbing stairs? Answer Date of Assessment Author Status No 08/22/2022 4:56 PM NOZZLE OPERATOR Mona Harris R N Active * Do you have difficulty dressing or bathing? Answer Date of Assessment Author Status No 08/22/2022 4:56 PM NOZZLE OPERATOR Mona Harris R N Active * Because of a physical, mental, or emotional condition, do you have difficulty doing errands alone such as visiting a doctor's office or shopping? Answer Date of Assessment Author Status No 08/22/2022 4:56 PM NOZZLE OPERATOR Mona Harris R N Active documented as of this encounter Mental Status * Because of a physical, mental, or emotional condition, do you have serious difficulty concentrating, remembering, or making decisions? Answer Entry Date Author Status No 08/22/2022 4:56 PM NOZZLE OPERATOR Mona Harris R N Active documented in this encounter Progress Notes * Jayne Hernandez MA - 05/11/2023 3:48 PM CDT Please advise documented in this encounter Plan of Treatment Upcoming Encounters Date Type Department Care Team (Late st Contact Info) Description 07/14/2025 8:10 AM NOZZLE OPERATOR Office Visit [facility] Family Medicine - [address] [phone] Zhen Farah II, MD [address] [place] [address] [phone] documented as of this encounter Goals Goal Patient Goal Type Associated Problems Recent Progress Patient-Stated? Author Health - patient able to perform ADLs independently Lifestyle Berta Archer RN documented as of this encounter Visit Diagnoses Not on filedocumented in this encounter Additional Health Concerns Assessment Noted Time PHQ-9 Depression Total Score: 0 08/31/19 22 9:03 AM NOZZLE OPERATOR documented as of this encounter Care Teams Lock Assembler Relationship Specialty Start Date End Date Zhen Farah II, MD [address] [place] [address] [phone] PCP - General FAMILY PRACTICE 04/18/22 documented as of this encounter
[2025-05-09] MEDS: LIDOCAINE 5% PATCH 1 PATCH TRANSDERM (20:43)
[2025-05-09] MEDS: traMADol HCL (*CRX) 50 MG TABLET PO (20:43)
== END 2025-05-09 20:50 | disposition home or self-care (01) ==
PROVIDERS: Emergency Provider Student in an Organized Health Care Education/Training Program; PCP Internal Medicine
DX: M25.562 Pain in left knee (principal); X50.0XXA Overexertion from strenuous movement or load, initial encounter
CPT/HCPCS: 73562; 99283; A9270